=== PATIENT | male | born 1960 | race Caucasian/White ===

== ENCOUNTER 2019-06-28 09:38 | Emergency (ER) | payer MEDICAID, OTHER ==
[~2019-06-28] VITALS: Ht 188 cm; Wt 86.2 kg
[2019-06-28 09:51] VITALS: BP 170/95
== END 2019-06-28 10:30 | disposition home or self-care (01) ==
LOC: ER 09:38
DX: S61.210A Laceration without foreign body of right index finger without damage to nail, initial encounter (principal); Z53.21 Procedure and treatment not carried out due to patient leaving prior to being seen by health care provider; X58.XXXA Exposure to other specified factors, initial encounter; Y93.89 Activity, other specified; Y92.89 Other specified places as the place of occurrence of the external cause; Y99.8 Other external cause status

== ENCOUNTER 2021-10-18 01:09 | Inpatient (IN) | payer OTHER, MEDICAID ==
[2021-10-18] VITALS (14 sets, daily range): BP systolic 141–178; BP diastolic 90–124
[~2021-10-18] VITALS: Ht 188 cm; Wt 114.7 kg
--- NOTE | 2021-10-18 02:05 | PHYS DOC ---
Past Medical History Past Medical History: Hypertension Past Surgical History: Appendectomy, Lumbar Laminectomy Additional Past Surgical Histo: HERNIA, ANKLE RECONSTRUCTION, CARPAL TUNNEL Smoking Status: Current Every Day Smoker Alcohol Use: None Drug Use: None General Adult EDM: Chief Complaint: SHORTNESS OF BREATH HPI: HPI: 61-year-old male past medical history HFrEF (on lasix 40mg), afib (on eliquis) COPD and BPH, presents to the ED with complaints of worsening shortness of breath and lower extremity swelling. Reports associated vomiting, loose watery diarrhea "I can't keep anything down," chills and lack of smell. States he has not been vaccinated for Covid but was discharged from [facility] 10 days ago after being admitted for fluid around the heart and the lungs. States his Covid test at that time was negative. Reports he was kicked out by security because "no one's putting things in me without my consent." States the attending physician wanted to put "stents" in-unsure location stent placement. Reviewed patient's medical paperwork he brought to the emergency department. Patient was also admitted to [facility] September 24 and had a negative bilateral lower extremity duplex ultrasound. Review of Systems: Review of Systems: Constitutional: Denies fever or chills. [] Eyes: Denies change in visual acuity. [] HENT: Denies nasal congestion or sore throat. [] Respiratory: Denies cough or mopped assist Cardiovascular: Denies chest pain or syncope GI: Denies abdominal pain or constipation : Denies dysuria or hematuria Musculoskeletal: Denies back pain or joint pain. [] Integument: Denies rash or diaphoresis Neurologic: Denies headache, focal weakness or sensory changes. [] Endocrine: Denies polyuria or polydipsia. [] Lymphatic: Denies swollen glands. [] Psychiatric: Denies depression or anxiety. [] Heart Score: C/O Chest Pain: No Risk Factors: Risk Factors: DM, Current or recent (<one month) smoker, HTN, HLP, family history of CAD, obesity. Risk Scores: Score 0 - 3: 2.5% MACE over next 6 weeks - Discharge Home Score 4 - 6: 20.3% MACE over next 6 weeks - Admit for Clinical Observation Score 7 - 10: 72.7% MACE over next 6 weeks - Early Invasive Strategies Allergies: Allergies: Allergies Coded Allergies Type Severity Reaction Last Updated Verified No Known Drug Allergies 06/28/19 No Physical Exam: PE: Constitutional: no acute distress, non-toxic appearance, appears in chronic/poor health HENT: Normocephalic, atraumatic, Eyes: EOMI, conjunctiva normal, no discharge. Neck: Normal range of motion, supple, JVD present Cardiovascular: S1/2 present, irregular rhythm Lungs & Thorax: Speaking in full sentences, bilateral equal chest rise, mild labored speech, equal breath sounds, mild expiratory wheeze Abdomen: soft, no tenderness, Skin: Warm, dry, Back: No tenderness, no CVA tenderness. [] Extremities: No tenderness, no cyanosis, lower extremity edema-otherwise significantly increased in the right lower extremity than the left lower extremity Neurologic: Alert and oriented X 3, normal motor function, normal sensory function, no focal deficits noted. [] Psychologic: Affect normal, judgement normal, mood normal. [] EKG: EKG: A. fib at 96 bpm, left axis deviation, QTC 481, no obvious T wave inversions, ST elevations or ST depressions Radiology/Procedures: Radiology/Procedures: IMAGING REPORT Signed PATIENT: BIB MOSES LACCOUNT: [id number] : 1960 LOCATION: ED HOLD AGE: 61 SEX: M EXAM STATUS: ADM IN ORD. PHYSICIAN: BROOKLYN WILSON DO REASON: leg swelling, rle >> lle PROCEDURE: VENOUS LOWER EXT BILATERAL INDICATION: Reason: leg swelling, rle >> lle / Spl. Instructions: / History: COMPARISON: None. TECHNIQUE: Grayscale, color and doppler ultrasound images were obtained of the bilateral lower extremity venous vasculature. RIGHT: No thrombus identified in the common femoral vein, femoral vein, popliteal vein or visualized calf veins. LEFT: No thrombus identified in the common femoral vein, femoral vein, popliteal vein or visualized calf veins. IMPRESSION: * No thrombus identified in deep venous system of bilateral lower extremities. * Edema of soft tissues. Electronically signed by: Kendal Mathur MD (10/18/2021 4:01 AM) [id number] DICTATED and SIGNED BY: KENDAL MATHUR MD DATE: 10/18/21 [id number] Course & Med Decision Making: Course & Med Decision Making Pertinent Labs and Imaging studies reviewed. (See chart for details) Concern for NSTEMI and chf exacerbation-I suspect [facility] wanted to cath pt. Lower extremity duplex with no signs of DVT. CTA and repeat high-sensitivity troponin pending. Will admit for further medical management and cardiology consultation. Patient stable to admission and agrees with this plan. I have spoken with the patient and/or caregivers. I have explained the patie nt's condition, diagnosis and treatment plan based on the information available to me at this time. I have answered the patient's and/or caregivers questions and answered any concerns. The patient and/or caregivers have as good an understanding of the patient's diagnosis, condition and treatment plan as can be expected at this point. The patient has been stabilized within the capability of the emergency department. The patient will be transported for further care and management or will be moved to an observation or inpatient service. I have communicated with the staff or medical practitioner taking over this patient's care. Nettie Disclaimer: Nettie Disclaimer: This electronic medical record was generated, in whole or in part, using a voice recognition dictation system. Departure Departure Impression: Primary Impression: NSTEMI (non-ST elevated myocardial infarction) Additional Impression: CHF (congestive heart failure) Disposition: ADMITTED INPATIENT Admitting Physician: ORLANDO (Dr. Dela Cruz) Condition: GUARDED Referrals: UNKNOWN PCP NAME (PCP) BROOKLYN WILSON DO Oct 18, 2021 02:05
[2021-10-18 02:48] LABS: BASO % 1 % (0-3); EOS # 0.2 x10^3/uL (0.0-0.7); EOS % 3 % (0-3); HEMOGLOBIN 9.6 g/dL (13.0-17.5); LYMPH # 1.4 x10^3/uL (1.0-4.8); LYMPH % 22 % (24-48); MEAN CORPUSCULAR HEMOGLOBIN 25 pg (25-35); MEAN CORPUSCULAR HGB CONC 32 g/dL (31-37); MEAN CORPUSCULAR VOLUME 79 fL (79-100); MONO # 0.8 x10^3/uL (0.0-1.1); MONO % 12 % (0-9); NEUT % 63 % (31-73); PLATELET COUNT 203 x10^3/uL (140-400); RED BLOOD COUNT 3.79 x10^6/uL (4.30-5.70); WHITE BLOOD COUNT 6.4 x10^3/uL (4.0-11.0)
[2021-10-18 02:56] LABS: CALCIUM 8.2 mg/dL (8.5-10.1); CREATININE 1.3 mg/dL (0.7-1.3); GFR 56.1; POTASSIUM 4.2 mmol/L (3.5-5.1)
[2021-10-18 02:57] LABS: BILIRUBIN,URINE NEGATIVE (NEG); CLARITY,URINE CLEAR; COLOR,URINE YELLOW; NITRITE,URINE NEGATIVE (NEG); PH,URINE 5.5 (<5.0-8.0); PROTEIN,URINE 100 mg/dL (NEG-TRACE)
[2021-10-18 03:03] LABS: ALBUMIN 3.3 g/dL (3.4-5.0); ALBUMIN/GLOBULIN RATIO 0.9 (1.0-1.7); TOTAL BILIRUBIN 0.6 mg/dL (0.2-1.0); TOTAL PROTEIN 6.9 g/dL (6.4-8.2)
[2021-10-18 03:04] LABS: INFLUENZA A PATIENT NEGATIVE (NEGATIVE); INFLUENZA B PATIENT NEGATIVE (NEGATIVE)
[2021-10-18] MEDS ORDERED: diphenhydrAMINE HCL 25 MG CAPSULE PO ONE ×2 (03:14→03:30)
[2021-10-18 03:16] LABS: BACTERIA,URINE 0 /HPF (0-FEW); RBC,URINE 0 /HPF (0-2)
[2021-10-18] MEDS ORDERED: ONDANSETRON PF 4 MG/2 ML VIAL. ONE (03:44)
[2021-10-18] MEDS ORDERED: CONTRAST GIVEN. MC PRN ×2 (03:45→10:45)
[2021-10-18] MEDS ORDERED: ONDANSETRON PF 4 MG/2 ML VIAL. IVP ONE (04:00)
[2021-10-18] MEDS ORDERED: IOHEXOL 350 MG/ML 100 ML VIAL. IV ONE (04:00)
--- NOTE | 2021-10-18 04:03 | RAD ---
INDICATION: Reason: leg swelling, rle >> lle / Spl. Instructions: / History: COMPARISON: None. TECHNIQUE: Grayscale, color and doppler ultrasound images were obtained of the bilateral lower extrem ity venous vasculature. RIGHT: No thrombus identified in the common femoral vein, femoral vein, popliteal vein or visualized calf ve ins. LEFT: No thrombus identified in the common femoral vein, femoral vein, popliteal vein or visualized calf ve ins. IMPRESSION: * No thrombus identified in deep venous system of bilateral lower extremities. * Edema of soft tissues. Electronically signed by: Bj Posada MD (10/18/2021 4:01 AM) [id number]
--- NOTE | 2021-10-18 07:15 | RAD ---
CTA scan of the Chest with Contrast (Pulmonary Embolism protocol) 10/18/2021 Clinical History: Shortness of breath. Technique: After the intravenous administration of 75 cc of Omnipaque 350, contiguous, 0.625 mm axial sections were obtained through the chest. 2 mm axial and 3D MIP coronal and sagittal reconstructed images were obtained. One or more of the following individualized dose reduction techniques were utilized for this study: 1. Automated exposure control. 2. Adjustment of the mA and/or kV according to patient size. 3. Use of iterative reconstruction technique. Findings: Comparison is made to a portable chest radiograph performed earlier today. Suboptimal opacification of the pulmonary arteries with contrast is seen significantly limiting the s tudy. No obvious filling defect is seen within the visualized pulmonary arteries. There is mild cardiomegaly. Mild atherosclerotic calcification of the thoracic aorta is seen. The tho racic aorta is mildly tortuous but tapers normally. Enlarged hilar and mediastinal lymph nodes are se en which measure 1 to 2.7 cm in size. Minimal dependent subsegmental atelectasis seen involving both lungs. No area of consolidation is see n. No pneumothorax or pleural effusion is noted. Images through the upper abdomen demonstrate small amount of ascites. Degenerative changes are seen involving the thoracic spine. Impression: The study is limited due to suboptimal opacification of the pulmonary arteries with contr ast. There is no definite CT evidence of pulmonary embolism. Electronically signed by: Wicho Chauhan MD (10/18/2021 7:13 AM) [id number]
[2021-10-18] MEDS ORDERED: MORPHINE SULFATE 2 MG/ML INJ. IVP ONE (08:00)
[2021-10-18] MEDS ORDERED: IODIXANOL 320 MG/ML 100 ML VIAL. ONE (09:30)
[2021-10-18] MEDS ORDERED: LIDOCAINE 1% PF 2 ML VIAL. ONE (09:30)
--- NOTE | 2021-10-18 09:49 | PDOC2 ---
MARGIE PRINCE BELL ATTENDANT 10/18/21 0948: CARDIAC CONSULT DATE OF CONSULT Date of Consult DATE: 10/18/21 TIME: 09:35 REASON FOR CONSULT Reason for Consult: NSTEMI CHF REFERRING PHYSICIAN Referring Physician: Dr. Hankins SOURCE Source: Chart review, Patient HISTORY OF PRESENT ILLNESS HISTORY OF PRESENT ILLNESS This is a 61 yo male who presented secondary to shortness of breath and LE edema. Patient reports he has been short of breath and edematous for the last 10 months. Has require inpatient admission to [facility] and [facility]. [facility] chart notated history of severe CMP, but no specific LVEF stated. Patient was to have echocardiogram conducted recently, but unfortunately left AMA prior to having conducted. C was recommended also, but patient refused. Patient was seen in clinic with Dr. Gandhi last month and agreed to [facility] at that time. Patient was scheduled to have on an outpatient basis today. Due to worsening LE edema and shortness of breath, patient presented to the ED for further evaluation and burak tment. He denies any chest pain, palpitations, dizziness, diaphoresis, or nausea/vomiting. does reports compliance with medications. PAST MEDICAL HISTORY Cardiovascular: AFIB, CHF, HTN, Hyperlipidemia, Other (Venous insufficiency ) Pulmonary: COPD Psych: Anxiety, Bipolar, Depression, Schizophrenia Renal/: Benign prostatic enlarg. PAST SURGICAL HISTORY Past Surgical History: Hernia Repair, Other (lumbar laminectomy) FAMILY HISTORY Family History: Heart Disease SOCIAL HISTORY Smoke: <1 pack per day ALCOHOL: occassional Drugs: Crystal meth (h/o meth use ) Lives: Alone CURRENT MEDICATIONS CURRENT MEDICATIONS Current Medications Medications (Trade) Dose Ordered Sig/Mari Route PRN Reason Start Time Stop Time Status Last Admin Dose Admin Diphenhydramine HCl (Benadryl) 25 mg 1X ONCE PO 10/18/21 03:30 10/18/21 03:31 DC 10/18/21 03:16 Iohexol (Omnipaque 350 Mg/ml) 75 ml 1X ONCE IV 10/18/21 04:00 10/18/21 04:01 DC 10/18/21 04:17 Ondansetron HCl (Zofran) 8 mg 1X ONCE IVP 10/18/21 04:00 10/18/21 04:01 DC 10/18/21 03:46 Morphine Sulfate (Morphine Sulfate) 2 mg 1X ONCE IVP 10/18/21 08:00 12/6/21 08:01 DC 10/18/21 08:44 ALLERGIES ALLERGIES: Coded Allergies: No Known Drug Allergies (Unverified , 06/28/19) ROS Review of System 14 point ROS conducted with pertinent positives noted above in hPI PHYSICAL EXAM General: Alert, Oriented X3, Cooperative, No acute distress HEENT: Atraumatic, Mucous membr. moist/pink Lungs: Other (crackles ) Heart: Other (AFIB, rate controlled ) Abdomen: Soft Extremities: Other (2+ bilateral LE edema ) Skin: No significant lesion Neuro: Normal speech, Sensation intact Psych/Mental Status: Mental status NL, Other (flat affect ) MUSCULOSKELETAL: Osteoarthritic changes both hands VITALS/I&O VITALS/I&O: Vital Signs Date Time Temp Pulse Resp B/P (MAP) Pulse Ox O2 Delivery O2 Flow Rate FiO2 10/18/21 08:44 22 100 Room Air 10/18/21 04:13 93 152/97 (115) 10/18/21 01:30 98.2 98.2 LABS Lab: Laboratory Tests Test 10/18/21 02:28 10/18/21 02:30 10/18/21 02:45 10/18/21 07:35 White Blood Count 6.4 x10^3/uL (4.0-11.0) Red Blood Count 3.79 x10^6/uL (4.30-5.70) L Hemoglobin 9.6 g/dL (13.0-17.5) L Hematocrit 30.0 % (39.0-53.0) L Mean Corpuscular Volume 79 fL (79-100) Mean Corpuscular Hemoglobin 25 pg (25-35) Mean Corpuscular Hemoglobin Concent 32 g/dL (31-37) Red Cell Distribution Width 18.0 % (11.5-14.5) H Platelet Count 203 x10^3/uL (140-400) Neutrophils (%) (Auto) 63 % (31-73) Lymphocytes (%) (Auto) 22 % (24-48) L Monocytes (%) (Auto) 12 % (0-9) H Eosinophils (%) (Auto) 3 % (0-3) Basophils (%) (Auto) 1 % (0-3) Neutrophils # (Auto) 4.0 x10^3/uL (1.8-7.7) Lymphocytes # (Auto) 1.4 x10^3/uL (1.0-4.8) Monocytes # (Auto) 0.8 x10^3/uL (0.0-1.1) Eosinophils # (Auto) 0.2 x10^3/uL (0.0-0.7) Basophils # (Auto) 0.0 x10^3/uL (0.0-0.2) D-Dimer (Melanie) 2.94 ug/mlFEU (0.00-0.50) H Sodium Level 139 mmol/L (136-145) Potassium Level 4.2 mmol/L (3.5-5.1) Chloride Level 104 mmol/L (98-107) Carbon Dioxide Level 23 mmol/L (21-32) Anion Gap 12 (6-14) Blood Urea Nitrogen 28 mg/dL (8-26) H Creatinine 1.3 mg/dL (0.7-1.3) Estimated GFR (Cockcroft-Gault) 56.1 BUN/Creatinine Ratio 22 (6-20) H Glucose Level 97 mg/dL (70-99) Lactic Acid Level 0.8 mmol/L (0.4-2.0) Calcium Level 8.2 mg/dL (8.5-10.1) L Total Bilirubin 0.6 mg/dL (0.2-1.0) Aspartate Amino Transferase (AST) 28 U/L (15-37) Alanine Aminotransferase (ALT) 35 U/L (16-63) Alkaline Phosphatase 73 U/L (46-116) Creatine Kinase 95 U/L (39-308) Troponin I High Sensitivity 134 ng/L (4-75) H 147 ng/L (4-75) H LV-Vzj-C-Type Natriuretic Peptide 90492 pg/mL (0-124) H Total Protein 6.9 g/dL (6.4-8.2) Albumin 3.3 g/dL (3.4-5.0) L Albumin/Globulin Ratio 0.9 (1.0-1.7) L Influenza Type A Antigen Negative (NEGATIVE) Influenza Type B Antigen Negative (NEGATIVE) SARS-CoV-2 Antigen (Rapid) Negative (NEGATIVE) Urine Collection Type Unknown Urine Color Yellow Urine Clarity Clear Urine pH 5.5 (<5.0-8.0) Urine Specific Pitcher 1.020 (1.000-1.030) Urine Protein 100 mg/dL (NEG-TRACE) Urine Glucose (UA) Negative mg/dL (NEG) Urine Ketones (Stick) Negative mg/dL (NEG) Urine Blood Negative (NEG) Urine Nitrite Negative (NEG) Urine Bilirubin Negative (NEG) Urine Urobilinogen Dipstick 1.0 mg/dL (0.2 mg/dL) Urine Leukocyte Esterase Trace (NEG) Urine RBC 0 /HPF (0-2) Urine WBC 1-4 /HPF (0-4) Urine Squamous Epithelial Cells Occ /LPF Urine Bacteria 0 /HPF (0-FEW) Urine Mucus Slight /LPF Laboratory Tests 10/18/21 02:28 Laboratory Tests 10/18/21 02:28 ASSESSMENT/PLAN ASSESSMENT/PLAN 1. Acute on chronic systolic CHF 2. CMP; H/o severely reduced LV systolic function per review of [facility] records. No date noted. Echo ordered at recent hospitalization at [facility], but patient left AMA prior to completion. 3. Mild troponin elevation; most probable type II, demand ischemia. LHC also recommended at [facility], but patient declined. Patient consented to [facility] on an outpatient during recent clinic visit; was scheduled for today. 4. AFIB; presently AFIB, rate controlled 5. Accelerated hypertension; better controlled 6. Hyperlipidemia 7. Schizophrenia, personality disorder, anxiety, depression 8. H/o polysubstance abuse; reports he has been clean 9. H/o noncompliance Recommendations Diuresis with monitoring of renal function Start HF optimization therapy. Convert metoprolol to Toprol. Add losartan, spironolactone. Echo to assess LV systolic function Metoprolol for rate control Resume Eliquis post [facility] Lipids Will proceed with [facility] today. R/b/a discussed with patient and he is agreeable to proceed. Supportive care MICHAEL GANDHI MD 10/18/21 1030: CARDIAC CONSULT ASSESSMENT/PLAN ASSESSMENT/PLAN Patient seen and examined. Agree with EMERY GRINDER's assessment and plan. Continue diuresis for acute on chronic systolic heart failure. Plan for cardiac catheterization to further evaluate his non-STEMI -risks and benefits explained Atrial fibrillation with heart rate elevated -resume home medications and titrate for better control Thank you for your consultation MARGIE PRINCE APRN Oct 18, 2021 09:48 MICHAEL GANDHI MD Oct 18, 2021 10:30
[2021-10-18 10:00] LABS: CHOLESTEROL/HDL RATIO 3.6
--- NOTE | 2021-10-18 10:28 | PDOC ---
MODERATE SEDATION ASSESSMENT RISKS/ALTERNATIVES Risks/Alternatives Risks and alternatives of this type of sedation and procedure discussed with: RISK/ALTERNATIVES: Patient H & P ON CHART H & P H & P on chart and reviewed for co-morbid conditions and appropriate labs. H&P ON CHART: Yes STATUS PREG STATUS ASSESSED: N/A MEDS/ALLERGIES REVIEWED Meds/Allergies Reviewed Medications and Allergies including time and route of recently administered narcotics and sedatives. MEDS/ALLERGIES REVIEWED: Yes ASA RATING ASA RATING: III AIRWAY ASSESSMENT Airway Assessment Airway patency, oral function limitations, presence of caps, crowns, dentures, partials, and ability to extend neck assessed. AIRWAY ASSESSMENT: Yes MALLAMPATI SCORE MALLAMPATI SCORE: II PRE-SEDATION ASSESSMENT PRE-SEDATION ASSESSMENT: Yes MICHAEL MOSES MD Oct 18, 2021 10:28
[2021-10-18] MEDS ORDERED: HEPARIN for IV BOLUS 10,000 UNIT/10 ML VIAL. IART ONE (10:45)
[2021-10-18] MEDS ORDERED: IODIXANOL 320 MG/ML 100 ML VIAL. IART ONE (10:45)
[2021-10-18] MEDS ORDERED: MIDAZOLAM HCL/PF 2 MG/2 ML VIAL. IV ONE (10:45)
[2021-10-18] MEDS ORDERED: fentaNYL PF VIAL 100 MCG/2 ML VIAL IV ONE (10:45)
[2021-10-18] MEDS ORDERED: LIDOCAINE 1% PF 2 ML VIAL. INJ ONE (10:45)
[2021-10-18] MEDS ORDERED: VERAPAMIL 5 MG/2 ML VIAL. IART ONE (10:45)
[2021-10-18] MEDS ORDERED: NITROGLYCERIN 200 MCG/2 ML SYRINGE FOR CATH/VASC LAB. IART ONE (10:45)
--- NOTE | 2021-10-18 10:45 | CARD ---
MR#: [id number] Date of Study: 10/18/2021 Ordering Physician: MICHAEL MOSES, Referring Physician: MICHAEL MOSES, Tech: RT Jeffrey(R) APPROVED REPORT Technologist: RT Jeffrey(R) Nurse: Kim Murphy RN Procedure(s) performed: Left heart catheterization, selective coronary angiography and left ventricul ography via right transradial approach fl time: 2.2 mins dose: 60 gycm2 contrast: 113 ml moderate sedation: 33 mins INDICATION The indication(s) include : Acute on chronic systolic heart failure and non-STEMI. [facility] Clinical Frailty Scale [facility] Clinical Frailty Scale: Moderately Frail Heart Failure Heart Failure: Yes If Yes, Newly Diagnosed: No If Yes, HF Type: Systolic If Yes, NYHA Class: Class III CASE TECHNIQUE IV conscious sedation was used throughout procedure with appropriate monitoring and was performed in the presence of a registered nurse who was an independent trained observer other than the physician p erforming the procedure. During this case, Fluoroscopy and low osmolar contrast were used for imaging . Specimen(s) Removed: No Estimated Blood loss: 10 cc's. PROCEDURE NARRATIVE After explaining the risks, benefits and alternative options, informed consent was obtained from susan ent. Patient was brought to the cardiac Ceramics Instructor and right wrist was prepped and draped in the usual fashion after confirming a positive modified Abdirizak's test. Arterial access was obtained in the righ t radial artery and a 6 Gabonese sheath was inserted. 6 Gabonese Ludin catheter was used to perform kenyon ective angiography of the left and right coronary arteries. 6 Gabonese pigtail catheter was used to pe rform left ventriculography. Patient tolerated the procedure well. Hemostasis was achieved using TR band. There were no immediate complications. The following findings were noted. FINDINGS 1. Hemodynamics: Elevated left ventricular end-diastolic pressure of 36 mmHg consistent with acute o n chronic systolic heart failure. No pullback gradient across the aortic valve. 2. Left ventriculography: Severe left ventricular systolic dysfunction with ejection fraction estima marisela at 25%. No significant mitral regurgitation seen. 3. Coronary angiography: a. The left main coronary artery arose from the left sinus of Valsalva, gave rise to the left anteri or descending and left circumflex arteries and did not show any significant stenosis. b. The left anterior descending artery did not show any significant stenosis. c. The left circumflex artery did not show any significant stenosis. d. The right coronary artery was a large and dominant vessel arising from the right sinus of Valsalv a that did not show any significant stenosis. Conclusion 1. No significant coronary artery disease 2. Severe left ventricle systolic dysfunction with ejection fraction estimated at 25% 3. Elevated left ventricular end-diastolic pressure consistent with acute on chronic systolic heart failure Recommendations Optimization of medical therapy for severe nonischemic cardiomyopathy and repeat 2D echo in 3 months to evaluate the need for AICD implantation Signed by : Michael Moses, Electronically Approved : 10/18/2021 10:45:09
[2021-10-18] MEDS ORDERED: DILT240C33 PO (11:04)
[2021-10-18] MEDS ORDERED: POTA20TA4 PO (11:04)
[2021-10-18] MEDS ORDERED: FURO40TA4 PO (11:04)
[2021-10-18] MEDS ORDERED: TAMS0.4C97 PO (11:04)
[2021-10-18] MEDS ORDERED: APIX5TAB PO (11:04)
[2021-10-18] MEDS ORDERED: METOPROLOL TART IMMED RELEASE 25 MG TABLET. PO ONE (11:30)
[2021-10-18] MEDS ORDERED: FUROSEMIDE 40 MG TABLET. PO ONE (11:30)
[2021-10-18] MEDS ORDERED: METOPROLOL TART IMMED RELEASE 25 MG TABLET. PO SCH (12:00)
[2021-10-18] MEDS ORDERED: ZOLPIDEM 5 MG TABLET. PO PRN (12:15)
[2021-10-18] MEDS ORDERED: CALCIUM CARBONATE 500 MG TAB.CHEW PO PRN (12:15)
[2021-10-18] MEDS ORDERED: ELECTROLYTE (NON-ICU) PROTOCOL. MC PRN (12:15)
[2021-10-18] MEDS ORDERED: ACETAMINOPHEN 325 MG TABLET. PO PRN (12:15)
--- NOTE | 2021-10-18 13:12 | PDOC1 ---
History and Physical Date of Admission Date of Admission DATE: 10/18/21 TIME: 13:10 Identification/Chief Complaint Chief Complaint Shortness of breath Source Source: Patient History of Present Illness History of Present Illness Mr Otero is a 61yo male with PMhx Hypertension, HFrEF <30% EF, afib (on eliquis) COPD, and BPH who presents to the ED with complaints of worsening shortness of breath and lower extremity swelling. leg swelling R>L. Reports associated vomiting, loose watery diarrhea. He has noted worsening orthopnea and dyspnea on exertion and notes that normally at his dry weight he weighs 205 pounds and that home he will need 262 pounds. He has not been vaccinated for Covid19. He notes 2 recent hospital stays at [facility] 10 days prior to arrival here and tells me he was escorted out of the hospital by police. He also notes he was hospitalized at [facility] in September for similar symptoms. Labs with WBC 6.4, Hb 9.6, platelets 203, NA 139, K4.2, BUN 28, CR 1.3, calcium 8.2, albumin 3.3, LFTs otherwise within normal laboratory limits, NT proBNP 14,606, high-sensitivity troponin is 134, TSH 2.027, D-dimer 2.94, rapid influenza negative, rapid COVID-19 and COVID-19 PCR both negative. Urinalysis bland. EKG appears A. fib at 96 bpm, left axis deviation, QTC 481, no obvious T wave inversions, ST elevations or ST depressions Bilateral lower extremity venous Doppler negative for DVT, CT pulmonary angiogram undertaking given his symptoms some negative for pulmonary embolism Admitted for further care. Seen immediately after cardiac catheterization where no interventions were performed and EF was noted significantly reduced less than 30%. Past Medical History Cardiovascular: AFIB, CHF, HTN, Hyperlipidemia, Other (Venous insufficiency ) Pulmonary: COPD Psych: Anxiety, Bipolar, Depression, Schizophrenia Renal/: Benign prostatic enlarg. Past Surgical History Past Surgical History Appendectomy, Lumbar Laminectomy, HERNIA, ANKLE RECONSTRUCTION, CARPAL TUNNEL Past Surgical History: Appendectomy, Hernia Repair Family History Family History: High Cholestrol, Hypertension Social History Smoke: 1 pack per day ALCOHOL: none Drugs: Crystal meth Current Problem List Problem List Problems Medical Problems: (1) CHF (congestive heart failure) Status: Acute (2) NSTEMI (non-ST elevated myocardial infarction) Status: Acute Current Medications Current Medications Current Medications Diphenhydramine HCl (Benadryl) 25 mg 1X ONCE PO Last administered on 10/18/21at 03:16; Start 10/18/21 at 03:30; Stop 10/18/21 at 03:31; Status DC Diphenhydramine HCl (Benadryl) 25 mg STK-MED ONCE PO ; Start 10/18/21 at 03:14; Stop 10/18/21 at 03:15; Status DC Iohexol (Omnipaque 350 Mg/ml) 75 ml 1X ONCE IV Last administered on 10/18/21at 04:17; Start 10/18/21 at 04:00; Stop 10/18/21 at 04:01; Status DC Ondansetron HCl (Zofran) 8 mg 1X ONCE IVP Last administered on 10/18/21at 03:46; Start 10/18/21 at 04:00; Stop 10/18/21 at 04:01; Status DC Ondansetron HCl (Zofran) 4 mg STK-MED ONCE .ROUTE ; Start 10/18/21 at 03:44; St op 10/18/21 at 03:44; Status DC Info (CONTRAST GIVEN -- Rx MONITORING) 1 each PRN DAILY PRN MC SEE COMMENTS; Start 10/18/21 at 03:45; Stop 10/20/21 at 03:44 Morphine Sulfate (Morphine Sulfate) 2 mg 1X ONCE IVP Last administered on 10/18/21at 08:44; Start 10/18/21 at 08:00; Stop 10/18/21 at 08:01; Status DC Lidocaine HCl (Xylocaine-Mpf 1% 2ml Vial) 2 ml STK-MED ONCE .ROUTE ; Start 10/18/21 at 09:30; Stop 10/18/21 at 09:30; Status DC Iodixanol (Visipaque 320) 100 ml STK-MED ONCE .ROUTE ; Start 10/18/21 at 09:30; Stop 10/18/21 at 09:30; Status DC Heparin Sodium/ Sodium Chloride 1,000 ml @ As Directed STK-MED ONCE .ROUTE ; Start 10/18/21 at 09:30; Stop 10/18/21 at 09:30; Status DC Nitroglycerin (Nitroglycerin) 200 mcg 1X ONCE IART Last administered on 1 12/19/20at 10:40; Start 10/18/21 at 10:45; Stop 10/18/21 at 10:46; Status DC Verapamil HCl (Verapamil) 2.5 mg 1X ONCE IART Last administered on 10/18/21at 10:40; Start 10/18/21 at 10:45; Stop 10/18/21 at 10:46; Status DC Heparin Sodium (Porcine) (Heparin Sodium) 2,500 unit 1X ONCE IART Last administered on 10/18/21at 10:40; Start 10/18/21 at 10:45; Stop 10/18/21 at 10:46; Status DC Heparin Sodium/ Sodium Chloride (HEPARIN for ARTERIAL LINE FLUSH) 1,000 unit 1X ONCE IART Last administered on 10/18/21at 10:42; Start 10/18/21 at 10:45; Stop 10/18/21 at 10:46; Status DC Midazolam HCl (Versed) 4 mg 1X ONCE IV Last administered on 10/18/21at 10:41; Start 10/18/21 at 10:45; Stop 10/18/21 at 10:46; Status DC Fentanyl Citrate (Fentanyl 2ml Vial) 100 mcg 1X ONCE IV Last administered on 10/18/21at 10:41; Start 10/18/21 at 10:45; Stop 10/18/21 at 10:46; Status DC Iodixanol (Visipaque 320) 113 ml 1X ONCE IART Last administered on 10/18/21at 10:41; Start 10/18/21 at 10:45; Stop 10/18/21 at 10:46; Status DC Lidocaine HCl (Xylocaine-Mpf 1% 2ml Vial) 2 ml 1X ONCE INJ Last administered on 10/18/21at 10:41; Start 10/18/21 at 10:45; Stop 10/18/21 at 10:46; Status DC Info (CONTRAST GIVEN -- Rx MONITORING) 1 each PRN DAILY PRN MC SEE COMMENTS; Start 10/18/21 at 10:45; Stop 10/20/21 at 10:44 Metoprolol Tartrate (Lopressor) 25 mg BID PO ; Start 10/18/21 at 12:00 Apixaban (Eliquis) 5 mg BID PO ; Start 10/18/21 at 21:00 Furosemide (Lasix) 40 mg DAILY PO ; Start 10/19/21 at 09:00 Potassium Chloride (Klor-Con) 20 meq DAILY PO ; Start 10/19/21 at 09:00 Tamsulosin HCl (Flomax) 0.4 mg DAILY PO ; Start 10/19/21 at 09:00 Metoprolol Tartrate (Lopressor) 25 mg 1X ONCE PO Last administered on 10/18/21at 11:30; Start 10/18/21 at 11:30; Stop 10/18/21 at 11:32; Status DC Furosemide (Lasix) 40 mg 1X ONCE PO Last administered on 10/18/21at 11:30; Start 10/18/21 at 11:30; Stop 10/18/21 at 11:32; Status DC Ondansetron HCl (Zofran) 4 mg PRN Q6HRS PRN IVP NAUSEA/VOMITING; Start 10/18/21 at 12:15 Calcium Carbonate/ Glycine (Tums) 500 mg PRN Q3HRS PRN PO UPSET STOMACH; Start 10/18/21 at 12:15 Zolpidem Tartrate (Ambien) 5 mg PRN QHS PRN PO INSOMNIA, MAY REPEAT IN 1HR; Start 10/18/21 at 12:15 Info (Non-Icu Electrolyte Protocol) 1 ea PRN DAILY PRN MC SEE COMMENTS; Start 10/18/21 at 12:15 Oxycodone HCl (Roxicodone) 5 mg PRN Q3HRS PRN PO BREAKTHROUGH PAIN; Start 10/18/21 at 12:15 Oxycodone/ Acetaminophen (Percocet 5/325) 1 tab PRN Q4HRS PRN PO MILD PAIN, 1ST CHOICE; Start 10/18/21 at 12:15 Oxycodone/ Acetaminophen (Percocet 5/325) 2 tab PRN Q4HRS PRN PO MODERATE PAIN, SEVERE PAIN; Start 10/18/21 at 12:15 Acetaminophen (Tylenol) 650 mg PRN Q6HRS PRN PO Headaches, Temp > 101.5F; Start 10/18/21 at 12:15 Senna/Docusate Sodium (Senna Plus) 1 tab BID PO ; Start 10/18/21 at 21:00 Active Scripts Active Reported Potassium Chloride (Potassium Chloride) 20 Meq Tablet.er 20 Meq PO DAILY Eliquis (Apixaban) 5 Mg Tablet 5 Mg PO BID Flomax (Tamsulosin Hcl) 0.4 Mg Cap.er.24h 0.4 Mg PO DAILY Diltiazem 24Hr Cd (Diltiazem HCl) 240 Mg Cap.er.24h 1 Cap PO DAILY 30 Days Furosemide 40 Mg Tablet 40 Mg PO DAILY Allergies Allergies: Coded Allergies: No Known Drug Allergies (Unverified , 06/28/19) ROS General: YES: Fatigue, Malaise; No: Chills, Night Sweats, Appetite, Other PSYCHOLOGICAL ROS: YES: Anxiety, Mood Swings; No: Behavioral Disorder, Concentration difficultie, Decreased libido, Depression, Disorientation, Hallucinations, Hostility, Irritablity, Memory difficulties, Obsessive thoughts, Physical abuse, Sexual abuse, Sleep disturbances, Suicidal ideation, Other Eyes: No Blurry vision, No Decreased vision, No Double vision, No Dry eyes, No Excessive tearing, No Eye Pain, No Itchy Eyes, No Loss of vision, No Photophobia, No Scotomata, No Uses contacts, No Uses glasses, No Other HEENT: No: Heacaches, Visual Changes, Hearing change, Nasal congestion, Nasal discharge, Oral lesions, Sinus pain, Sore Throat, Epistaxis, Sneezing, Snoring, Tinnitus, Vertigo, Vocal changes, Other ALLERGY AND IMMUNOLOGY: No: Hives, Insect Bite Sensitivity, Itchy/Watery Eyes, Nasal Congestion, Post Nasal Drip, Seasonal Allergies, Other Hematological and Lymphatic: No: Bleeding Problems, Blood Clots, Blood Transfusions, Brusing, Night Sweats, Pallor, Swollen Lymph Nodes, Other ENDOCRINE: No: Breast Changes, Galactorrhea, Hair Pattern Changes, Hot Flashes, Malaise/lethargy, Mood Swings, Palpitations, Polydipsia/polyuria, Skin Changes, Temperature Intolerance, Unexpected Weight Changes, Other Breast: No New/Changing Breast Lumps, No Nipple changes, No Nipple discharge, No Other Respiratory: YES: Cough, Orthopnea, Shortness of breath, SOB with excertion; No: Hemoptysis, Pleuritic Pain, Sputum Changes, Stridor, Tachypnea, Wheezing, Other Cardiovascular: yes Orthopnea, yes Paroxysmal Noc. Dyspnea, yes Edema; No Chest Pain, No Palpitations, No Lt Headedness, No Other Gastrointestinal: Yes Nausea, Yes Vomiting; No Abdominal Pain, No Diarrhea, No Constipation, No Melena, No Hematochezia, No Other Genitourinary: YES Frequency; No Dysuria, No Incontinence, No Hematuria, No Retention, No Discharge, No Urgency, No Pain, No Flank Pain, No Other, No , No , No , No , No , No , No Musculoskeletal: No Gait Disturbance, No Joint Pain, No Joint Stiffness, No Joint Swelling, No Muscle Pain, No Muscular Weakness, No Pain In:, No Swelling In:, No Other Neurological: No Behavorial Changes, No Bowel/Bladder ControlChng, No Confusion, No Dizziness, No Gait Disturbance, No Headaches, No Impaired Coord/balance, No Memory Loss, No Numbness/Tingling, No Seizures, No Speech Problems, No Tremors, No Visual Changes, No Weakness, No Other Skin: No Dry Skin, No Eczema, No Hair Changes, No Lumps, No Mole Changes, No Mottling, No Nail Changes, No Pruritus, No Rash, No Skin Lesion Changes, No Other, No Acne Physical Exam General: Alert, Oriented X3, Cooperative, mild distress HEENT: Atraumatic, PERRLA, EOMI, Mucous membr. moist/pink, Other (right eye, filled teardrop tattoo) Lungs: Other (babasilar crackles) Heart: irregularly irregular Abdomen: Normal bowel sounds, Soft, No tenderness, No hepatosplenomegaly, No masses Rectal Exam: not examined Extremities: No clubbing, No cyanosis, Normal pulses, No tenderness/swelling Skin: No rashes, No breakdown, Other (Heel cracked on right) Neuro: Normal gait, Normal speech, Strength at 5/5 X4 ext, Normal tone, Sensation intact, Cranial nerves 3-12 NL, Reflexes 2+ Psych/Mental Status: Mental status NL, Mood NL Vitals Vitals Vital Signs Date Time Temp Pulse Resp B/P (MAP) Pulse Ox O2 Delivery O2 Flow Rate FiO2 10/18/21 12:55 74 14 98 Nasal Cannula 2.0 10/18/21 09:20 144/100 (115) 10/18/21 01:30 98.2 98.2 Labs Labs Laboratory Tests Test 10/18/21 02:28 10/18/21 02:30 10/18/21 02:45 10/18/21 07:35 White Blood Count 6.4 x10^3/uL (4.0-11.0) Red Blood Count 3.79 x10^6/uL (4.30-5.70) Hemoglobin 9.6 g/dL (13.0-17.5) Hematocrit 30.0 % (39.0-53.0) Mean Corpuscular Volume 79 fL (79-100) Mean Corpuscular Hemoglobin 25 pg (25-35) Mean Corpuscular Hemoglobin Concent 32 g/dL (31-37) Red Cell Distribution Width 18.0 % (11.5-14.5) Platelet Count 203 x10^3/uL (140-400) Neutrophils (%) (Auto) 63 % (31-73) Lymphocytes (%) (Auto) 22 % (24-48) Monocytes (%) (Auto) 12 % (0-9) Eosinophils (%) (Auto) 3 % (0-3) Basophils (%) (Auto) 1 % (0-3) Neutrophils # (Auto) 4.0 x10^3/uL (1.8-7.7) Lymphocytes # (Auto) 1.4 x10^3/uL (1.0-4.8) Monocytes # (Auto) 0.8 x10^3/uL (0.0-1.1) Eosinophils # (Auto) 0.2 x10^3/uL (0.0-0.7) Basophils # (Auto) 0.0 x10^3/uL (0.0-0.2) D-Dimer (Melanie) 2.94 ug/mlFEU (0.00-0.50) Sodium Level 139 mmol/L (136-145) Potassium Level 4.2 mmol/L (3.5-5.1) Chloride Level 104 mmol/L (98-107) Carbon Dioxide Level 23 mmol/L (21-32) Anion Gap 12 (6-14) Blood Urea Nitrogen 28 mg/dL (8-26) Creatinine 1.3 mg/dL (0.7-1.3) Estimated GFR (Cockcroft-Gault) 56.1 BUN/Creatinine Ratio 22 (6-20) Glucose Level 97 mg/dL (70-99) Lactic Acid Level 0.8 mmol/L (0.4-2.0) Calcium Level 8.2 mg/dL (8.5-10.1) Total Bilirubin 0.6 mg/dL (0.2-1.0) Aspartate Amino Transf (AST/SGOT) 28 U/L (15-37) Alanine Aminotransferase (ALT/SGPT) 35 U/L (16-63) Alkaline Phosphatase 73 U/L (46-116) Creatine Kinase 95 U/L (39-308) Troponin I High Sensitivity 134 ng/L (4-75) 147 ng/L (4-75) RT-Bmz-W-Type Natriuretic Peptide 34161 pg/mL (0-124) Total Protein 6.9 g/dL (6.4-8.2) Albumin 3.3 g/dL (3.4-5.0) Albumin/Globulin Ratio 0.9 (1.0-1.7) Influenza Type A Antigen Negative (NEGATIVE) Influenza Type B Antigen Negative (NEGATIVE) SARS-CoV-2 RNA (VIKTORIYA) Negative (Negative) SARS-CoV-2 Antigen (Rapid) Negative (NEGATIVE) Urine Collection Type Unknown Urine Color Yellow Urine Clarity Clear Urine pH 5.5 (<5.0-8.0) Urine Specific Snyder 1.020 (1.000-1.030) Urine Protein 100 mg/dL (NEG-TRACE) Urine Glucose (UA) Negative mg/dL (NEG) Urine Ketones (Stick) Negative mg/dL (NEG) Urine Blood Negative (NEG) Urine Nitrite Negative (NEG) Urine Bilirubin Negative (NEG) Urine Urobilinogen Dipstick 1.0 mg/dL (0.2 mg/dL) Urine Leukocyte Esterase Trace (NEG) Urine RBC 0 /HPF (0-2) Urine WBC 1-4 /HPF (0-4) Urine Squamous Epithelial Cells Occ /LPF Urine Bacteria 0 /HPF (0-FEW) Urine Mucus Slight /LPF Triglycerides Level 41 mg/dL (0-150) Cholesterol Level 83 mg/dL (0-200) LDL Cholesterol, Calculated 52 mg/dL (0-100) VLDL Cholesterol, Calculated 8 mg/dL (0-40) Non-HDL Cholesterol Calculated 60 mg/dL (0-129) HDL Cholesterol 23 mg/dL (40-60) Cholesterol/HDL Ratio 3.6 Thyroid Stimulating Hormone (TSH) 2.027 uIU/mL (0.358-3.74) Laboratory Tests Test 10/18/21 02:28 10/18/21 02:30 12/6/21 02:45 10/18/21 07:35 White Blood Count 6.4 x10^3/uL (4.0-11.0) Red Blood Count 3.79 x10^6/uL (4.30-5.70) Hemoglobin 9.6 g/dL (13.0-17.5) Hematocrit 30.0 % (39.0-53.0) Mean Corpuscular Volume 79 fL (79-100) Mean Corpuscular Hemoglobin 25 pg (25-35) Mean Corpuscular Hemoglobin Concent 32 g/dL (31-37) Red Cell Distribution Width 18.0 % (11.5-14.5) Platelet Count 203 x10^3/uL (140-400) Neutrophils (%) (Auto) 63 % (31-73) Lymphocytes (%) (Auto) 22 % (24-48) Monocytes (%) (Auto) 12 % (0-9) Eosinophils (%) (Auto) 3 % (0-3) Basophils (%) (Auto) 1 % (0-3) Neutrophils # (Auto) 4.0 x10^3/uL (1.8-7.7) Lymphocytes # (Auto) 1.4 x10^3/uL (1.0-4.8) Monocytes # (Auto) 0.8 x10^3/uL (0.0-1.1) Eosinophils # (Auto) 0.2 x10^3/uL (0.0-0.7) Basophils # (Auto) 0.0 x10^3/uL (0.0-0.2) D-Dimer (Melanie) 2.94 ug/mlFEU (0.00-0.50) Sodium Level 139 mmol/L (136-145) Potassium Level 4.2 mmol/L (3.5-5.1) Chloride Level 104 mmol/L (98-107) Carbon Dioxide Level 23 mmol/L (21-32) Anion Gap 12 (6-14) Blood Urea Nitrogen 28 mg/dL (8-26) Creatinine 1.3 mg/dL (0.7-1.3) Estimated GFR (Cockcroft-Gault) 56.1 BUN/Creatinine Ratio 22 (6-20) Glucose Level 97 mg/dL (70-99) Lactic Acid Level 0.8 mmol/L (0.4-2.0) Calcium Level 8.2 mg/dL (8.5-10.1) Total Bilirubin 0.6 mg/dL (0.2-1.0) Aspartate Amino Transf (AST/SGOT) 28 U/L (15-37) Alanine Aminotransferase (ALT/SGPT) 35 U/L (16-63) Alkaline Phosphatase 73 U/L (46-116) Creatine Kinase 95 U/L (39-308) Troponin I High Sensitivity 134 ng/L (4-75) 147 ng/L (4-75) AO-Noc-E-Type Natriuretic Peptide 84833 pg/mL (0-124) Total Protein 6.9 g/dL (6.4-8.2) Albumin 3.3 g/dL (3.4-5.0) Albumin/Globulin Ratio 0.9 (1.0-1.7) Influenza Type A Antigen Negative (NEGATIVE) Influenza Type B Antigen Negative (NEGATIVE) SARS-CoV-2 RNA (VIKTORIYA) Negative (Negative) SARS-CoV-2 Antigen (Rapid) Negative (NEGATIVE) Urine Collection Type Unknown Urine Color Yellow Urine Clarity Clear Urine pH 5.5 (<5.0-8.0) Urine Specific Snyder 1.020 (1.000-1.030) Urine Protein 100 mg/dL (NEG-TRACE) Urine Glucose (UA) Negative mg/dL (NEG) Urine Ketones (Stick) Negative mg/dL (NEG) Urine Blood Negative (NEG) Urine Nitrite Negative (NEG) Urine Bilirubin Negative (NEG) Urine Urobilinogen Dipstick 1.0 mg/dL (0.2 mg/dL) Urine Leukocyte Esterase Trace (NEG) Urine RBC 0 /HPF (0-2) Urine WBC 1-4 /HPF (0-4) Urine Squamous Epithelial Cells Occ /LPF Urine Bacteria 0 /HPF (0-FEW) Urine Mucus Slight /LPF Triglycerides Level 41 mg/dL (0-150) Cholesterol Level 83 mg/dL (0-200) LDL Cholesterol, Calculated 52 mg/dL (0-100) VLDL Cholesterol, Calculated 8 mg/dL (0-40) Non-HDL Cholesterol Calculated 60 mg/dL (0-129) HDL Cholesterol 23 mg/dL (40-60) Cholesterol/HDL Ratio 3.6 Thyroid Stimulating Hormone (TSH) 2.027 uIU/mL (0.358-3.74) Images Images CTA scan of the Chest with Contrast (Pulmonary Embolism protocol) 10/18/2021: Findings: Comparison is made to a portable chest radiograph performed earlier today. Suboptimal opacification of the pulmonary arteries with contrast is seen significantly limiting the study. No obvious filling defect is seen within the visualized pulmonary arteries. There is mild cardiomegaly. Mild atherosclerotic calcification of the thoracic aorta is seen. The thoracic aorta is mildly tortuous but tapers normally. Enlarged hilar and mediastinal lymph nodes are seen which measure 1 to 2.7 cm in size. Minimal dependent subsegmental atelectasis seen involving both lungs. No area of consolidation is seen. No pneumothorax or pleural effusion is noted. Images through the upper abdomen demonstrate small amount of ascites. Degenerative changes are seen involving the thoracic spine. Impression: The study is limited due to suboptimal opacification of the pulmonary arteries with contrast. There is no definite CT evidence of pulmonary embolism. VTE Prophylaxis Ordered VTE Prophylaxis Devices: No VTE Pharmacological Prophylaxi: Yes Assessment/Plan Assessment/Plan A/P: Acute on chronic systolic CHF - given IV lasix, will continue with cardiology consulted. Daily BMP, mag, daily weights, strict I/O Cardiomyopathy - historically with reduced EF per cardiology review of [facility] records. Elevated troponin - negative [facility] 10/18/2021 AFIB - cont metoprolol, eliquis Hypertension - prn hydralazine, cont BB Hyperlipidemia - statin Schizophrenia, personality disorder, anxiety, depression - will con home meds Polysubstance abuse - f/u UDS. Counseled Anemia - likely of chronic disease, will check iron, b12 Bilateral LE edema - asymmetric with R>L by 1.5", negative for DVT. Will compress, elevated, diurese. BPH - cont flomax FEN - cardiac diet PPX - eliquis FULL CODE Dispo - admit to [facility] Justifications for Admission Other Justification TEJAL DILLARD MD Oct 18, 2021 13:12
--- NOTE | 2021-10-18 13:29 | NUR ---
Pt to CV[facility] post cardiac cath for recovery and to await an inpt bed. TR band air removal procedure completed without difficulty, new armboard in place, no bleeding noted. Dr Gillis here to see pt. Pt is awake and alert, cooperative. Needs to understand what is being done, but has been calm throughout time here. Pt ate lunch, does state he has trouble with swallowing sometime, but did not have difficulty with lunch. Pt states has trouble with insomnia and is currently trying to rest. ANA RN
[2021-10-18] MEDS ORDERED: NICOTINE 21MG PATCH. TD PRN (14:00)
[2021-10-18 14:20] LABS: BARBITURATES NEG (NEG); BENZODIAZEPINES POS (NEG); CANNABINOIDS NEG (NEG); COCAINE NEG (NEG); METHADONE NEG (NEG); OPIATES POS (NEG); PHENCYCLIDINE NEG (NEG)
[2021-10-18 14:21] LABS: AMPHETAMINE/METHAMPHETAMINE NEG (NEG)
--- NOTE | 2021-10-18 15:03 | NUR ---
pt returns from Echo, monitors reattached. Cont to hold for inpt bed. ANA RN
[2021-10-18] MEDS ORDERED: FUROSEMIDE 40 MG/4 ML VIAL. IVP ONE (15:30)
[2021-10-18] MEDS: SPIRONOLACTONE 25 MG TABLET PO SCH (15:40)
[2021-10-18] MEDS: METOPROLOL SUCC 24HR ER 50 MG TAB.ER.24H. PO SCH (15:40)
[2021-10-18] MEDS ORDERED: hydrALAZINE 20 MG/ML VIAL. IVP PRN (16:45)
--- NOTE | 2021-10-18 17:57 | CARD ---
MR#: [id number] Date of Study: 10/18/2021 Ordering Physician: MARGIE PRINCE, Referring Physician: MARGIE PRINCE, Tech: SalomeMira Torres, [facility] APPROVED REPORT EXAM: Two-dimensional and M-mode echocardiogram with Doppler and color Doppler. Other Information Quality : AverageHR: 96bpm INDICATION COPD Dyspnea Atrial Fibrillation Congestive Heart Failure RISK FACTORS Hypertension Smoking 2D DIMENSIONS RVDd4.5 (2.9-3.5cm)Left Atrium(2D)4.1 (1.6-4.0cm) IVSd1.5 (0.7-1.1cm)Aortic Root(2D)4.4 (2.0-3.7cm) LVDd6.2 (3.9-5.9cm)LVOT Diameter2.2 (1.8-2.4cm) PWd1.5 (0.7-1.1cm)LVDs5.4 (2.5-4.0cm) FS (%) 11.9 %SV48.3 ml LVEF(%)25.3 (>50%) Aortic Valve AoV Peak Ant.89.6cm/sAoV VTI15.0cm AO Peak GR.3.2mmHgLVOT Peak Ant.78.2cm/s LVOT VTI 13.68cmAO Mean GR.2mmHg CHARLI (VMAX)2.77uq6YSU (VTI)3.35cm2 Mitral Valve MV E Fizmprcx74.0cm/sMV E Peak Gr.84mmHg MV DECEL [id number] A Imrrfsys16.0cm/s MV TPA23awG/A Ratio1.7 MVA (PHT)5.48cm2 TDI E/Lateral E'7.1E/Medial E'9.1 Pulmonary Valve PV Peak Wmkatyuv12.6cm/sPV Peak Grad.2mmHg Tricuspid Valve TR P. [id number]/sRAP [id number] TR Peak Gr.26egImLYBZ29scLh LEFT VENTRICLE The Left Ventricle is mildly dilated. There is moderate concentric left ventricular hypertrophy. The systolic function is severely impaired. The Ejection Fraction is 20-25%. There is severe global hypok inesis. Septal motion suggestive of RV pressure overload. Tissue Doppler imaging reveals moderate lef t ventricular diastolic dysfunction. RIGHT VENTRICLE The right ventricle is severe dilated. There is normal right ventricular wall thickness. RV Systolic function is severely reduced. ATRIA The left atrium is moderately dilated. The right atrium is moderately dilated. The interatrial septum is intact with no evidence for an atrial septal defect or patent foramen ovale as noted on 2-D or Do ppler imaging. AORTIC VALVE The aortic valve is mildly thickened. Doppler and Color Flow revealed trace to mild aortic regurgitat ion. There is no significant aortic valvular stenosis. Calculated aortic valve area is 2.94 cm2 with maximum pressure gradient of 4 mmHg and mean pressure gradient of 2 mmHg. MITRAL VALVE The mitral valve is normal in structure and function. There is no evidence of mitral valve prolapse. There is no mitral valve stenosis. Doppler and Color-flow revealed trace mitral regurgitation. TRICUSPID VALVE The tricuspid valve is normal in structure and function. Doppler and Color Flow revealed mild tricusp id regurgitation with an estimated PAP of 63 mmHg. There is no tricuspid valve stenosis. PULMONIC VALVE The pulmonic valve is not well visualized. Doppler and Color Flow revealed trace to mild pulmonic belkys vular regurgitation. There is no pulmonic valvular stenosis. GREAT VESSELS The aortic root is mildly to moderately enlarged measuring 4.67 cm. The ascending aorta is normal in size. The IVC is dilated and collapses <50% with inspiration. PERICARDIAL EFFUSION There is no evidence of significant pericardial effusion. Critical Notification Critical Value: No <Conclusion> The systolic function is severely impaired. The Ejection Fraction is 20-25%. There is severe global hypokinesis. Septal motion suggestive of RV pressure overload. The right ventricle is severe dilated. RV Systolic function is severely reduced. Doppler and Color Flow revealed mild tricuspid regurgitation with an estimated PAP of 63 mmHg. Signed by : Gregorio Mclaughlin, Electronically Approved : 10/18/2021 17:57:23
[2021-10-18] MEDS: FERROUS SULFATE 325 MG TABLET. PO SCH (18:03)
[2021-10-18] MEDS: oxyCODONE/APAP 5/325 1 TAB TABLET PO PRN (19:30)
[2021-10-18] MEDS: SENNOSIDES/DOCUSATE 8.6/50MG TABLET. PO SCH (21:17)
[2021-10-18] MEDS: APIXABAN 5 MG TABLET. PO SCH (21:17)
[2021-10-18] MEDS: ONDANSETRON PF 4 MG/2 ML VIAL. IVP PRN (22:05)
[2021-10-18] MEDS: oxyCODONE IR 5 MG TABLET PO PRN (22:16)
[2021-10-18] MEDS ORDERED: LOSA100T2 PO (22:45)
[2021-10-18] MEDS ORDERED: LOSARTAN POTASSIUM 25 MG TABLET. PO SCH (23:00)
[2021-10-19] MEDS: oxyCODONE/APAP 5/325 1 TAB TABLET PO PRN ×3 (02:41→20:26)
[2021-10-19 02:51] VITALS: BP 115/93
[2021-10-19 04:30] LABS: ALBUMIN 3.2 g/dL (3.4-5.0); ALBUMIN/GLOBULIN RATIO 0.9 (1.0-1.7); CALCIUM 8.1 mg/dL (8.5-10.1); CREATININE 1.3 mg/dL (0.7-1.3); GFR 56.1; TOTAL BILIRUBIN 0.5 mg/dL (0.2-1.0); TOTAL PROTEIN 6.7 g/dL (6.4-8.2)
[2021-10-19 06:42] VITALS: BP 144/103
[2021-10-19] MEDS: oxyCODONE IR 5 MG TABLET PO PRN ×3 (07:41→22:17)
[2021-10-19] MEDS ORDERED: FUROSEMIDE 40 MG TABLET. PO SCH (09:00)
[2021-10-19] MEDS: METOPROLOL SUCC 24HR ER 50 MG TAB.ER.24H. PO SCH (09:19)
[2021-10-19] MEDS: FERROUS SULFATE 325 MG TABLET. PO SCH ×2 (09:19→13:33)
[2021-10-19] MEDS: POTASSIUM CHLORIDE 20 MEQ TABLET.ER. PO SCH (09:19)
[2021-10-19] MEDS: APIXABAN 5 MG TABLET. PO SCH ×2 (09:20→20:25)
[2021-10-19] MEDS: SENNOSIDES/DOCUSATE 8.6/50MG TABLET. PO SCH ×2 (09:20→20:25)
[2021-10-19] MEDS: TAMSULOSIN 0.4 MG CAP.ER.24H. PO SCH (09:20)
[2021-10-19] MEDS: SPIRONOLACTONE 25 MG TABLET PO SCH (09:20)
[2021-10-19 11:00] VITALS: BP 152/100
--- NOTE | 2021-10-19 11:30 | NUR ---
SS following for discharge planning. SS reviewed pt chart and discussed with pt RN. Pt is from home and is currently requiring oxygen at two liters nasal canula. No home oxygen. Cardiology following. Pt had heart cath on 10/18/2021. Discharge plan is currently to home when medically ready for discharge. SS will continue to follow for discharge planning.
--- NOTE | 2021-10-19 11:38 | PDOC ---
MARGIE PRINCE BRICK EXTRUDER OPERATOR 10/19/21 1138: CARDIO Progress Notes Date and Time Date of Service 10/19/21 Time of Evaluation 1130 Subjective Subjective: Other (c/o nasal and head congestion) Vitals Vitals Vital Signs Date Time Temp Pulse Resp B/P (MAP) Pulse Ox O2 Delivery O2 Flow Rate FiO2 10/19/21 11:00 64 20 152/100 (117) 93 Nasal Cannula 2.0 10/19/21 06:42 96.4 96.4 Weight Weight [ ] Input and Output Intake and Output Intake and Output 10/19/21 07:00 Intake Total 300 ml Output Total 4075 ml Balance -3775 ml Intake Oral 300 ml Output Urine Total 4075 ml # Voids 2 Laboratory Labs Laboratory Tests Test 10/18/21 13:25 10/19/21 03:00 Urine Opiates Screen Pos (NEG) Urine Methadone Screen Neg (NEG) Urine Barbiturates Neg (NEG) Urine Phencyclidine Screen Neg (NEG) Urine Amphetamine/Methamphetamine Neg (NEG) Urine Benzodiazepines Screen Pos (NEG) Urine Cocaine Screen Neg (NEG) Urine Cannabinoids Screen Neg (NEG) Urine Ethyl Alcohol Neg (NEG) Sodium Level 136 mmol/L (136-145) Potassium Level 4.0 mmol/L (3.5-5.1) Chloride Level 101 mmol/L (98-107) Carbon Dioxide Level 26 mmol/L (21-32) Anion Gap 9 (6-14) Blood Urea Nitrogen 28 mg/dL (8-26) Creatinine 1.3 mg/dL (0.7-1.3) Estimated GFR (Cockcroft-Gault) 56.1 BUN/Creatinine Ratio 22 (6-20) Glucose Level 110 mg/dL (70-99) Calcium Level 8.1 mg/dL (8.5-10.1) Magnesium Level 2.0 mg/dL (1.8-2.4) Total Bilirubin 0.5 mg/dL (0.2-1.0) Aspartate Amino Transf (AST/SGOT) 21 U/L (15-37) Alanine Aminotransferase (ALT/SGPT) 30 U/L (16-63) Alkaline Phosphatase 76 U/L (46-116) Total Protein 6.7 g/dL (6.4-8.2) Albumin 3.2 g/dL (3.4-5.0) Albumin/Globulin Ratio 0.9 (1.0-1.7) Microbiology Micro Microbiology 10/18/21 Urine Culture - Final, Complete 10/18/21 Blood Culture - Preliminary, Resulted NO GROWTH AFTER 1 DAY Physical Exam HEENT: Neck Supple W Full Motion Chest: Symmetric LUNGS: Clear to Auscultation Heart: irregularly irregular (rate controlled ) Abdomen: Soft N/T Extremities: Other (1-2+ bilateral LE edema ) Neurology: alert, oriented, follow commands Assessment Assessment 1. Acute on chronic systolic CHF 2. NICM; Echo with LVEF 20-25%. Cath without significant coronary artery disease 3. Mild troponin elevation; type II, demand ischemia. 4. AFIB; presently AFIB, rate controlled 5. Accelerated hypertension; better controlled, but remains mildly elevated 6. Hyperlipidemia; LDL 52 7. Schizophrenia, personality disorder, anxiety, depression 8. H/o polysubstance abuse 9. H/o noncompliance 10. Iron def anemia Recommendations Diuresis with monitoring of renal function HF optimization therapy. Continue Toprol, spironolactone, Lasix. Increase losartan. Metoprolol for rate control Eliquis for stroke prophylaxis Supportive care Discussed importance of medical compliance Repeat echo in 3 months to assess need for AICD in primary prevention of SCD. Justicifation of Admission Dx: Justifications for Admission: Justification of Admission Dx: Yes Comments: Acute on chronic systolic CHF NICM Accelerated HTN MICHAEL MOSES MD 10/19/212114: CARDIO Progress Notes Assessment Assessment Patient seen and examined. Agree with SALES MARKETING COORDINATOR's assessment and plan. Continue diuresis for acute on chronic systolic heart failure. Cardiac catheterization did not show any significant CAD Atrial fibrillation with rate better controlled Plan repeat echo in 3 months to evaluate need for ICD implantation MARGIE PRINCE APRN Oct 19, 2021 11:38 MICHAEL MOSES MD Oct 19, 2021 21:15
[2021-10-19] MEDS: FUROSEMIDE 40 MG/4 ML VIAL. IVP SCH (13:34)
[2021-10-19] MEDS: LOSARTAN POTASSIUM 50 MG TABLET. PO SCH (13:35)
[2021-10-19 15:00] VITALS: BP 149/99
[2021-10-19 19:16] VITALS: BP 131/91
[2021-10-19 22:45] VITALS: BP 129/92
--- NOTE | 2021-10-19 22:53 | PDOC ---
[employer] PROGRESS NOTE Date of Service DOS: DATE: 10/19/21 TIME: 22:50 Chief Complaint Chief Complaint Assessment/Plan A/P: Acute on chronic systolic CHF - given IV lasix, will continue with cardiology consulted. Daily BMP, mag, daily weights, strict I/O Cardiomyopathy - historically with reduced EF per cardiology review of [facility] records. Elevated troponin - negative [facility] 10/18/2021 AFIB - cont metoprolol, eliquis Hypertension - prn hydralazine, cont BB Hyperlipidemia - statin Schizophrenia, personality disorder, anxiety, depression - will con home meds Polysubstance abuse - f/u UDS. Counseled Anemia - likely of chronic disease, will check iron, b12 Bilateral LE edema - asymmetric with R>L by 1.5", negative for DVT. Will compress, elevated, diurese. BPH - cont flomax FEN - cardiac diet PPX - eliquis FULL CODE Dispo - admit to C History of Present Illness History of Present Illness History of Present Illness Mr Otero is a 61yo male with PMhx Hypertension, HFrEF <30% EF, afib (on eliquis) COPD, and BPH who presents to the ED with complaints of worsening shortness of breath and lower extremity swelling. leg swelling R>L. Reports associated vomiting, loose watery diarrhea. He has noted worsening orthopnea and dyspnea on exertion and notes that normally at his dry weight he weighs 205 pounds and that home he will need 262 pounds. He has not been vaccinated for Covid19. He notes 2 recent hospital stays at [facility] 10 days prior to arrival here and tells me he was escorted out of the hospital by police. He also notes he was hospitalized at [facility] in September for similar symptoms. Labs with WBC 6.4, Hb 9.6, platelets 203, NA 139, K4.2, BUN 28, CR 1.3, calcium 8.2, albumin 3.3, LFTs otherwise within normal laboratory limits, NT proBNP 14,606, high-sensitivity troponin is 134, TSH 2.027, D-dimer 2.94, rapid influenza negative, rapid COVID-19 and COVID-19 PCR both negative. Urinalysis bland. EKG appears A. fib at 96 bpm, left axis deviation, QTC 481, no obvious T wave inversions, ST elevations or ST depressions Bilateral lower extremity venous Doppler negative for DVT, CT pulmonary angiogram undertaking given his symptoms some negative for pulmonary embolism Admitted for further care. Seen immediately after cardiac catheterization where no interventions were performed and EF was noted significantly reduced less than 30%. 10/19 Patiente valuated and examined at bedside. HE was up in his chair reporting ongoing shortness of breath. He was pretty dismissive during entire visit he was filling out voter registration paperwork that seemed to be distracting him Vitals/I&O Vitals/I&O: Vital Signs Date Time Temp Pulse Resp B/P (MAP) Pulse Ox O2 Delivery O2 Flow Rate FiO2 10/19/21 22:17 16 96 Room Air 2.0 10/19/21 19:16 98.3 93 131/91 (104) 98.3 I & O 10/18/21 10/18/21 10/19/21 15:00 23:00 07:00 Intake Total 300 ml 0 ml Output Total 425 ml 2450 ml 1200 ml Balance -425 ml -2150 ml -1200 ml Physical Exam General: Alert, Oriented X3, No acute distress Heart: Regular rate, Normal S1, Normal S2, Other (AFIB, rate controlled ) Lungs: Crackles Abdomen: Soft Extremities: Normal pulses, Other (2+ bilateral LE edema ) Skin: No significant lesion Labs Labs: Laboratory Tests Test 10/19/21 03:00 Sodium Level 136 mmol/L (136-145) Potassium Level 4.0 mmol/L (3.5-5.1) Chloride Level 101 mmol/L (98-107) Carbon Dioxide Level 26 mmol/L (21-32) Anion Gap 9 (6-14) Blood Urea Nitrogen 28 mg/dL (8-26) Creatinine 1.3 mg/dL (0.7-1.3) Estimated GFR (Cockcroft-Gault) 56.1 BUN/Creatinine Ratio 22 (6-20) Glucose Level 110 mg/dL (70-99) Calcium Level 8.1 mg/dL (8.5-10.1) Magnesium Level 2.0 mg/dL (1.8-2.4) Total Bilirubin 0.5 mg/dL (0.2-1.0) Aspartate Amino Transf (AST/SGOT) 21 U/L (15-37) Alanine Aminotransferase (ALT/SGPT) 30 U/L (16-63) Alkaline Phosphatase 76 U/L (46-116) Total Protein 6.7 g/dL (6.4-8.2) Albumin 3.2 g/dL (3.4-5.0) Albumin/Globulin Ratio 0.9 (1.0-1.7) Assessment and Plan Assessmemt and Plan Problems Medical Problems: (1) CHF (congestive heart failure) Status: Acute (2) NSTEMI (non-ST elevated myocardial infarction) Status: Acute Comment Review of Relevant I have reviewed the following items mansi (where applicable) has been applied. Medications: Current Medications Medications (Trade) Dose Ordered Sig/Mari Route PRN Reason Start Time Stop Time Status Last Admin Dose Admin Potassium Chloride (Klor-Con) 20 meq DAILY PO 10/19/21 09:00 10/19/21 09:19 Tamsulosin HCl (Flomax) 0.4 mg DAILY PO 10/19/21 09:00 10/19/21 09:20 Losartan Potassium (Cozaar) 25 mg QHS PO 10/18/21 23:00 10/19/21 13:21 DC 10/18/21 22:47 Losartan Potassium (Cozaar) 50 mg DAILY PO 10/19/21 14:00 10/19/21 13:35 Furosemide (Lasix) 40 mg DAILY IVP 10/19/21 14:00 10/19/21 13:34 Justifications for Admission Other Justification TEJAL PAYNE MD Oct 19, 2021 22:53
[2021-10-20] MEDS: oxyCODONE/APAP 5/325 1 TAB TABLET PO PRN ×2 (02:30→11:16)
[2021-10-20 03:04] VITALS: BP 156/91
[2021-10-20] MEDS: oxyCODONE IR 5 MG TABLET PO PRN ×2 (05:04→09:44)
[2021-10-20] MEDS: ONDANSETRON PF 4 MG/2 ML VIAL. IVP PRN ×2 (05:11→13:30)
[2021-10-20 07:55] VITALS: BP 159/102
[2021-10-20] MEDS: POTASSIUM CHLORIDE 20 MEQ TABLET.ER. PO SCH (09:45)
[2021-10-20] MEDS: TAMSULOSIN 0.4 MG CAP.ER.24H. PO SCH (09:45)
[2021-10-20] MEDS: APIXABAN 5 MG TABLET. PO SCH (09:46)
[2021-10-20] MEDS: LOSARTAN POTASSIUM 50 MG TABLET. PO SCH (09:46)
[2021-10-20] MEDS: METOPROLOL SUCC 24HR ER 50 MG TAB.ER.24H. PO SCH (09:46)
[2021-10-20] MEDS: SENNOSIDES/DOCUSATE 8.6/50MG TABLET. PO SCH (09:47)
[2021-10-20] MEDS: SPIRONOLACTONE 25 MG TABLET PO SCH (09:47)
[2021-10-20] MEDS: FUROSEMIDE 40 MG/4 ML VIAL. IVP SCH (09:47)
[2021-10-20 10:46] VITALS: BP 152/108
[2021-10-20] MEDS: FERROUS SULFATE 325 MG TABLET. PO SCH (11:15)
--- NOTE | 2021-10-20 11:23 | PDOC ---
MARGIE PRINCE FAT PRESSROOM WORKER 10/20/21 1123: CARDIO Progress Notes Date and Time Date of Service 10/20/21 Time of Evaluation 1120 Subjective Subjective: No Chest Pain, No shortness of breath, No Palpitations Vitals Vitals Vital Signs Date Time Temp Pulse Resp B/P (MAP) Pulse Ox O2 Delivery O2 Flow Rate FiO2 10/20/21 11:16 99 Nasal Cannula 2.0 10/20/21 10:46 97.7 76 20 152/108 (123) 97.7 Weight Weight [ ] Input and Output Intake and Output Intake and Output 10/20/21 07:00 Intake Total 1137 ml Output Total 3100 ml Balance -1963 ml Intake Oral 1137 ml Output Urine Total 3100 ml Microbiology Micro Microbiology 10/18/21 Urine Culture - Final, Complete 10/18/21 Blood Culture - Preliminary, Resulted NO GROWTH AFTER 2 DAYS Physical Exam HEENT: Neck Supple W Full Motion Chest: Symmetric LUNGS: Clear to Auscultation Heart: irregularly irregular (rate controlled ) Abdomen: Soft N/T Extremities: Other (1+ bilateral LE edema ) Neurology: alert, oriented, follow commands Assessment Assessment 1. Acute on chronic systolic CHF 2. NICM; Echo with LVEF 20-25%. Cath without significant coronary artery disease 3. Mild troponin elevation; type II, demand ischemia. 4. AFIB; presently AFIB, rate controlled 5. Accelerated hypertension; better controlled, but remains mildly elevated 6. Hyperlipidemia; LDL 52 7. Schizophrenia, personality disorder, anxiety, depression 8. H/o polysubstance abuse 9. H/o noncompliance 10. Iron def anemia Recommendations Lasix therapy, convert to oral HF optimization therapy. Continue Toprol, losartan, spironolactone, Lasix Metoprolol for rate control Eliquis for stroke prophylaxis Supportive care Discussed importance of medical compliance Repeat echo in 3 months to assess need for AICD in primary prevention of SCD. Justicifation of Admission Dx: Justifications for Admission: Justification of Admission Dx: Yes MICHAEL MOSES MD 10/20/21 1001: CARDIO Progress Notes Assessment Assessment Patient seen and examined. Agree with SPINNING DOFFER's assessment and plan. Acute on chronic systolic heart failure better compensated -change Lasix to p.o. Cardiac catheterization did not show any significant CAD Atrial fibrillation with rate better controlled Plan repeat echo in 3 months to evaluate need for ICD implantation MARGIE PRINCE APRN Oct 20, 2021 11:23 MICHAEL MOSES MD Oct 20, 2021 17:45
[2021-10-20] MEDS ORDERED: LOSA-73 PO (11:27)
[2021-10-20] MEDS ORDERED: METO50TA4 PO (11:27)
[2021-10-20] MEDS ORDERED: OXYC5TAB4 PO (11:27)
[2021-10-20] MEDS ORDERED: SPIR25TA PO (11:27)
--- NOTE | 2021-10-20 12:07 | RAD ---
CT HEAD/BRAIN WO Date: 10/20/2021 11:00 AM Clinical Indication: Reason: frequent headache 07/23. Instructions: / History: Comparison: None. Technique: 5 mm axial tomographic images were obtained of the head without contrast. These were view ed on brain and bone windows. One or more of the following dose reduction techniques were utilized: A utomated exposure control (AEC), Adjustment of mA and/or kV according to patient size, Use of iterati ve reconstruction technique such as ASiR, CT scan done according to ALARA and image gently/image givens ly Findings: The brain parenchyma is normal in attenuation. No intra- or extra-axial mass or fluid collection. No acute hemorrhage. The ventricles are normal in size, shape, and morphology. The stevens-white matter alee ction is normal. The subarachnoid cisterns are patent. The visualized paranasal sinuses are normal. The visualized portions of the orbits and globes are no rmal. Postsurgical changes of right mastoidectomy. The greenstone polisher operator topogram shows no lytic lesion or fracture. Impression: No acute intracranial process. Electronically signed by: Alfonzo Mederos MD (10/20/2021 12:04 PM) [id number]
--- NOTE | 2021-10-20 12:48 | NUR ---
SS following up with discharge planning. SS reviewed pt chart and discussed with pt RN. Pt is currently requiring oxygen at two liters nasal canula. Six minute walk ordered. Pt had heart cath on 10/18/2021. COVID19 negative. Discharge order on the chart for home with self care. Addendum: 10/20/21 at 1643 by BOSSMAN LADD Script received for oxygen. Script and clinical phoned and faxed to [phone], ; fax [phone]. Oxygen tank provided to pt for home.
--- NOTE | 2021-10-20 16:56 | NUR ---
Discharge Note: BIB MOSES Discharge instructions and discharge home medications reviewed with Patient and a copy given. All questions have been answered and understanding verbalized. The following instructions and handouts were given: CHF, O2 use at home, chest pain IV discontinued, no complications Patient discharged to home with self care. All belongings taken home with patient. Patient instructed on importance of taking medications as prescribed and to keep all follow up appointments.
--- NOTE | 2021-10-20 20:48 | DS ---
DATE OF DISCHARGE: 10/20/2021 ADMITTING DIAGNOSES: Acute on chronic systolic congestive heart failure, elevated troponin. DISCHARGE DIAGNOSES: Status post cardiac catheterization, which did not show any severe coronary artery disease, but he did have a low ejection fraction of 25%, history of atrial fibrillation, chronic obstructive pulmonary disease, chronic anticoagulation, BPH, history of schizophrenia, history of polysubstance abuse, noncompliance and anemia. CONSULTS: Cardiology. HOSPITAL COURSE: The patient is a pleasant middle-aged male who presented with worsening heart failure and elevated troponin. He was admitted. We have consulted Cardiology, was taken for cardiac catheterization, which did not show any severe coronary artery disease, but he did have a low ejection fraction of 25%. Today, I saw and examined is at his baseline. We discharged to home with close outpatient followup. DISPOSITION: Home. ACTIVITY: As tolerated. DIET: Low sodium. DISCHARGE MEDICATIONS: Please see the MRAD. They are losartan 50 a day, metoprolol 50 a day, p.r.n. oxycodone, Aldactone 25 a day, Eliquis 5 b.i.d., Cardizem CD 240 a day, Lasix 40 a day, potassium 20 a day and Flomax 0.4 a day. TOTAL TIME: [address]: Patricia TID: [id number]
[2021-10-21] MEDS ORDERED: FUROSEMIDE 40 MG TABLET. PO SCH (09:00)
== END 2021-10-20 16:37 | disposition home or self-care (01) | DRG 280 ==
LOC: ER 01:09 → ED HOLD 03:28 → 6 SOUTH 16:15
PROVIDERS: ADMIT Internal Medicine; ATTEND Internal Medicine
PROC: 4A023N7 Measurement of Cardiac Sampling and Pressure, Left Heart, Percutaneous Approach (ICD-10-PCS; principal; 2021-10-18)
PROC: B2151ZZ Fluoroscopy of Left Heart using Low Osmolar Contrast (ICD-10-PCS; 2021-10-18)
PROC: B2111ZZ Fluoroscopy of Multiple Coronary Arteries using Low Osmolar Contrast (ICD-10-PCS; 2021-10-18)
DX: I11.0 Hypertensive heart disease with heart failure (principal); I21.4 Non-ST elevation (NSTEMI) myocardial infarction; I50.23 Acute on chronic systolic (congestive) heart failure; I42.8 Other cardiomyopathies; I48.91 Unspecified atrial fibrillation; D50.9 Iron deficiency anemia, unspecified; D63.8 Anemia in other chronic diseases classified elsewhere; E78.5 Hyperlipidemia, unspecified; F17.210 Nicotine dependence, cigarettes, uncomplicated; F20.9 Schizophrenia, unspecified; F31.9 Bipolar disorder, unspecified; F41.9 Anxiety disorder, unspecified; F60.9 Personality disorder, unspecified; J44.9 Chronic obstructive pulmonary disease, unspecified; N40.0 Benign prostatic hyperplasia without lower urinary tract symptoms; Z53.29 Procedure and treatment not carried out because of patient's decision for other reasons; Z79.01 Long term (current) use of anticoagulants; Z82.49 Family history of ischemic heart disease and other diseases of the circulatory system; Z90.49 Acquired absence of other specified parts of digestive tract; Z91.19 Patient's noncompliance with other medical treatment and regimen; Z20.822 Contact with and (suspected) exposure to COVID-19
CPT/HCPCS: 36415; 70450; 71275; 80053; 80061; 80307; 81001; 82550; 82607; 83540; 83550; 83605; 83735; 83880; 84443; 84484; 85025; 85379; 87040; 87086; 87426; 87804; 93005; 93306; 93458; 93970; 94618; 99152; 99153; C1894; J1644; J1940; J2250; J2270; J2405; J3010; J3490; Q9967; U0003; U0005; 99285-25; G0378; Q0163

== ENCOUNTER 2021-11-08 21:25 | Emergency (ER) | payer OTHER, MEDICAID ==
[~2021-11-08 21:25] MED LIST: APIX5TAB PO; DILT240C33 PO; FURO40TA4 PO; LOSA-73 PO; LOSA100T2 PO; METO50TA4 PO; OXYC5TAB4 PO; POTA20TA4 PO; SPIR25TA PO; TAMS0.4C97 PO
[2021-11-08 22:21] VITALS: BP 113/75
== END 2021-11-09 02:09 | disposition left against medical advice (07) ==
LOC: ER 21:25
DX: R06.02 Shortness of breath (principal); Z53.21 Procedure and treatment not carried out due to patient leaving prior to being seen by health care provider

== ENCOUNTER 2022-02-16 23:25 | Inpatient (IN) | payer OTHER, MEDICAID ==
[~2022-02-16] VITALS: Ht 185.4 cm; Wt 113.5 kg
[2022-02-16] MEDS ORDERED: IPRATRPIUM/ALBUTEROL 0.5/2.5MG 3 ML NEBU. NEB ONE (23:45)
[2022-02-16] MEDS ORDERED: ASPIRIN CHEWABLE 81 MG TABLET. PO ONE (23:45)
[2022-02-16] MEDS ORDERED: methylPREDNISolone SOD SUCC PF 125 MG/2 ML VIAL. IV ONE (23:45)
[2022-02-16] MEDS ORDERED: FUROSEMIDE 40 MG/4 ML VIAL. IVP ONE (23:45)
[2022-02-16 23:57] LABS: BASO % 1 % (0-3); EOS # 0.1 x10^3/uL (0.0-0.7); EOS % 2 % (0-3); HEMATOCRIT 33.5 % (39.0-53.0); HEMOGLOBIN 10.3 g/dL (13.0-17.5); LYMPH # 1.3 x10^3/uL (1.0-4.8); LYMPH % 17 % (24-48); MEAN CORPUSCULAR HEMOGLOBIN 24 pg (25-35); MEAN CORPUSCULAR HGB CONC 31 g/dL (31-37); MEAN CORPUSCULAR VOLUME 79 fL (79-100); MONO % 14 % (0-9); NEUT % 67 % (31-73); PLATELET COUNT 216 x10^3/uL (140-400); RED BLOOD COUNT 4.25 x10^6/uL (4.30-5.70); WHITE BLOOD COUNT 7.5 x10^3/uL (4.0-11.0)
[2022-02-17] VITALS (10 sets, daily range): BP systolic 133–187; BP diastolic 73–107
[2022-02-17 00:04] LABS: CALCIUM 8.5 mg/dL (8.5-10.1); CREATININE 1.6 mg/dL (0.7-1.3)
[2022-02-17 00:07] LABS: PROTHROMBIN TIME PATIENT 19.8 SEC (11.7-14.0)
[2022-02-17 00:11] LABS: ALBUMIN 3.7 g/dL (3.4-5.0); ALBUMIN/GLOBULIN RATIO 1.2 (1.0-1.7); TOTAL BILIRUBIN 1.6 mg/dL (0.2-1.0); TOTAL PROTEIN 6.7 g/dL (6.4-8.2)
[2022-02-17 00:28] LABS: D-DIMER 3.11 ug/mlFEU (0.00-0.50)
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
[2022-02-17] MEDS ORDERED: HALOPERIDOL LACTATE 5 MG/ML VIAL. IVP ONE (01:00)
[2022-02-17] MEDS: dilTIAZem HCL 125 MG in IV DEXTROSE 5% 100ML 100 ML IV ONE ×2 (01:00→10:10)
[2022-02-17] MEDS ORDERED: ACETAMINOPHEN 325 MG TABLET. PO PRN (01:15)
[2022-02-17] MEDS ORDERED: ONDANSETRON PF 4 MG/2 ML VIAL. IVP PRN (01:15)
--- NOTE | 2022-02-17 04:58 | RAD ---
EXAM: XR CHEST 1V 02/16/2022 12:02 AM CLINICAL INDICATION: Severe chest pain COMPARISON: Chest radiograph 10/18/2021 TECHNIQUE: AP upright view of the chest FINDINGS: There is moderate cardiomegaly . Lungs are adequately expanded. No consolidation, pleural effusion, or pneumothorax. IMPRESSION: Cardiomegaly. No new abnormality. Electronically signed by: Zelda Varela MD (02/17/2022 1:07 AM) [facility]
--- NOTE | 2022-02-17 07:01 | RAD ---
EXAMINATION: US BILATERAL LOWEREXTREMITY VENOUS DOPPLER, 02/17/2022 5:35 AM CLINICAL INDICATION: Bilateral lower extremity swelling, shortness of air COMPARISON: None Available. PROCEDURE: Multiple grayscale, color Doppler and spectral Doppler sonographic images of the bilateral lower extremities were obtained. FINDINGS: There is no evidence of deep venous thrombosis in either lower extremity. The bilateral com mon femoral, femoral and popliteal veins are echolucent with normal flow on color Doppler imaging. Th e veins are fully compressible and show normal phasicity and reaction to augmentation. Visualized kane f veins are also normal in appearance. IMPRESSION: No evidence of deep venous thrombosis in either lower extremity. Electronically signed by: Zelda Varela MD (02/17/2022 6:58 AM) [facility]
--- NOTE | 2022-02-17 07:05 | RAD ---
EXAMINATION: US ABDOMEN LIMITED 02/17/2022 5:35 AM INDICATION: Elevated liver enzymes, cholestasis TECHNIQUE: Jack scale and color Doppler ultrasound images of the right upper quadrant were obtained. COMPARISON: None. FINDINGS: Liver: The liver is enlarged measuring 20.3 cm in length. Normal hepatic echogenicity. No focal aron er lesion. Gallbladder: The gallbladder is normal in caliber. No cholelithiasis or sludge. The gallbladder wa ll is thickened measuring 8 mm. Bile ducts: The common bile duct is normal measuring 3 mm. No intrahepatic biliary duct dilatation. Right kidney: The right kidney measures 12.7 x 4.6 x 5.2 cm. Normal cortical thickness and echogenic ity. No hydronephrosis. There is a 1.8 cm simple renal cyst in the inferior right renal pole. Other: IVC is patent at the level of the liver. Pancreas is normal where visualized. IMPRESSION: 1. Hepatomegaly. 2. Moderate gallbladder wall thickening without cholelithiasis or gallbladder distention. This is non specific and can be seen in the setting of acute cholecystitis, heart or renal failure, or liver fail ure. Electronically signed by: Zelda Varela MD (02/17/2022 7:02 AM) [facility]
--- NOTE | 2022-02-17 08:11 | EKG ---
[address] [place] [id number] Test Date: 2022-02-16 Test Time: 23:30:44 Pat Name: BIB MOSES Department: Room: [facility] Gender: M Map Plotter: : 1960 Requested By: KELY THOMPSON Order Number: [id number] Reading MD: Mariano Gandhi Measurements Intervals [place] Rate: 113 P: [place]: QRS: -39 QRSD: 96 T: 134 QT: 356 QTc: 494 Interpretive Statements ATRIAL FIBRILATION T ABNORMALITY IN ANTEROLATERAL LEADS ABNORMAL ECG Electronically Signed On 02-25-2022 14:26:47 CDT by Mariano Gandhi
[2022-02-17 08:31] LABS: ANISOCYTOSIS MOD; HYPOCHROMIA SLIGHT; PLT ESTIMATE ADEQUATE (ADEQUATE)
[2022-02-17 08:32] LABS: POLYCHROMASIA SLIGHT; TEAR DROP CELLS OCC
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
[2022-02-17] MEDS ORDERED: diphenhydrAMINE HCL 25 MG CAPSULE PO PRN (11:00)
[2022-02-17] MEDS ORDERED: diphenhydrAMINE 50 MG/ML VIAL IVP ONE (11:00)
[2022-02-17] MEDS ORDERED: FUROSEMIDE 40 MG/4 ML VIAL. IVP ONE (11:00)
[2022-02-17] MEDS ORDERED: oxyCODONE IR 5 MG TABLET PO PRN (11:00)
[2022-02-17 11:21] LABS: CREATININE 1.5 mg/dL (0.7-1.3); GFR 47.4; POTASSIUM 4.1 mmol/L (3.5-5.1)
[2022-02-17] MEDS ORDERED: ONDANSETRON ODT 4 MG TAB.RAPDIS. PO PRN (11:30)
[2022-02-17] MEDS ORDERED: BUTALB/APAP/CAFEIN 50/325/40MG TABLET. PO PRN (11:30)
[2022-02-17] MEDS ORDERED: ANTI-COAG MONITOR BY PHARMACY. MC PRN (11:30)
[2022-02-17] MEDS: APIXABAN 5 MG TABLET. PO SCH ×2 (11:35→21:53)
[2022-02-17] MEDS: POTASSIUM CHLORIDE 20 MEQ TABLET.ER. PO SCH (11:35)
[2022-02-17] MEDS: SPIRONOLACTONE 25 MG TABLET PO SCH (11:36)
[2022-02-17] MEDS: TAMSULOSIN 0.4 MG CAP.ER.24H. PO SCH (11:36)
[2022-02-17] MEDS: LOSARTAN POTASSIUM 50 MG TABLET. PO SCH (11:36)
[2022-02-17] MEDS ORDERED: METOPROLOL SUCC 24HR ER 50 MG TAB.ER.24H. PO SCH (12:00)
[2022-02-17] MEDS: busPIRone 5 MG TABLET. PO PRN (12:07)
[2022-02-17 12:43] LABS: BARBITURATES NEG (NEG); BENZODIAZEPINES NEG (NEG); CANNABINOIDS NEG (NEG); COCAINE NEG (NEG); METHADONE NEG (NEG); OPIATES NEG (NEG); PHENCYCLIDINE NEG (NEG)
[2022-02-17 12:45] LABS: AMPHETAMINE/METHAMPHETAMINE NEG (NEG)
[2022-02-17] MEDS ORDERED: DIGOXIN IV 500 MCG/2 ML AMPUL. IV ONE (12:45)
--- NOTE | 2022-02-17 12:57 | PDOC2 ---
TYRONE KAY PLANNER INTERN 02/17/22 1257: CARDIAC CONSULT DATE OF CONSULT Date of Consult DATE: 02/17/22 TIME: 12:34 REASON FOR CONSULT Reason for Consult: CHF, AFIB RVR REFERRING PHYSICIAN Referring Physician: Marta SOURCE Source: Chart review, Patient HISTORY OF PRESENT ILLNESS HISTORY OF PRESENT ILLNESS This is a 62 yo male admitted for complains of SOA and chest pain. Chest pain is across his chest and some tightness and with nausea. He ran out completely of his medications about 3 weeks ago. His legs has been getting more swollen. Has been having diarrhea. and also has been having dizzy spells. Denies using meth. Presently still has SOA but no chest pain. PAST MEDICAL HISTORY Past Medical History Cardiovascular: AFIB, CHF, HTN, Hyperlipidemia, Other (Venous insufficiency ), NICM Pulmonary: COPD Psych: Anxiety, Bipolar, Depression, Schizophrenia Renal/: Benign prostatic enlarg. Hernia Repair, Other (lumbar laminectomy) FAMILY HISTORY Family History: Heart Disease SOCIAL HISTORY Smoke: <1 pack per day ALCOHOL: occassional Drugs: Crystal meth (h/o meth use ) Lives: Alone PAST SURGICAL HISTORY Past Surgical History Hernia Repair, Other (lumbar laminectomy), [facility] FAMILY HISTORY Family History: Heart Disease SOCIAL HISTORY Social History Smoke: <1 pack per day ALCOHOL: occassional Drugs: h/o meth use Lives: Alone CURRENT MEDICATIONS CURRENT MEDICATIONS Current Medications Medications (Trade) Dose Ordered Sig/Mari Route PRN Reason Start Time Stop Time Status Last Admin Dose Admin Aspirin (Aspirin Chewable) 324 mg 1X ONCE PO 02/16/22 23:45 02/16/22 23:46 DC 02/17/22 00:19 Albuterol/ Ipratropium (Duoneb) 3 ml 1X ONCE NEB 02/16/22 23:45 02/16/22 23:46 DC 02/17/22 00:58 Methylprednisolone Sodium Succinate (SOLU-Medrol 125MG VIAL) 125 mg 1X ONCE IV 02/16/22 23:45 02/16/22 23:46 DC 02/17/22 00:19 Furosemide (Lasix) 40 mg 1X ONCE IVP 02/16/22 23:45 02/16/22 23:46 DC 02/17/22 00:19 Diltiazem HCl (Cardizem Iv Push) 15 mg 1X ONCE IVP 02/17/22 01:00 02/17/22 01:01 DC 02/17/22 00:41 Haloperidol Lactate (Haldol Inj) 2.5 mg 1X ONCE IVP 02/17/22 01:00 02/17/22 01:01 DC 02/17/22 00:41 Diltiazem HCl 125 mg/Dextrose 125 ml @ 5 mls/hr 1X ONCE IV 02/17/22 01:00 02/18/22 01:59 02/17/22 10:10 Enoxaparin Sodium (Lovenox 120mg Syringe) 110 mg 1X ONCE SQ 02/17/22 01:30 02/17/22 05:31 DC 02/17/22 02:00 Furosemide (Lasix) 40 mg 1X ONCE IVP 02/17/22 11:00 02/17/22 11:10 DC 02/17/22 11:35 Apixaban (Eliquis) 5 mg BID PO 02/17/22 11:00 02/17/22 11:35 Diltiazem HCl (Cardizem 24hr Cd) 240 mg DAILY PO 02/17/22 12:00 02/17/22 12:00 Losartan Potassium (Cozaar) 50 mg DAILY PO 02/17/22 12:00 02/17/22 11:36 Metoprolol Succinate (Toprol Xl) 50 mg DAILY PO 02/17/22 12:00 02/17/22 11:35 Potassium Chloride (Klor-Con) 20 meq DAILY PO 02/17/22 12:00 02/17/22 11:35 Spironolactone (Aldactone) 25 mg DAILY PO 02/17/22 12:00 02/17/22 11:36 Tamsulosin HCl (Flomax) 0.4 mg DAILY PO 02/17/22 12:00 02/17/22 11:36 Buspirone HCl (Buspar) 5 mg PRN Q6HRS PRN PO ANXIETY 02/17/22 11:00 02/17/22 12:07 Diphenhydramine HCl (Benadryl) 25 mg 1X ONCE IVP 02/17/22 11:00 02/17/22 11:35 DC 02/17/22 11:00 ALLERGIES ALLERGIES: Coded Allergies: No Known Drug Allergies (Unverified , 06/28/19) ROS Review of System 14 point ROS evaluated with pertinent positives noted per HPI PHYSICAL EXAM General: Alert, Oriented X3, Cooperative, mild distress HEENT: Atraumatic, Mucous membr. moist/pink Lungs: Other (basilar crackles) Heart: Other (AFIB RVR) Abdomen: Soft, No tenderness, Other (protuberant) Extremities: No cyanosis, Other (3+ bilateral LE pitting edema) Skin: No breakdown Neuro: Normal speech, Sensation intact Psych/Mental Status: Mental status NL, Other (irritable) MUSCULOSKELETAL: Osteoarthritic changes both hands VITALS/I&O VITALS/I&O: Vital Signs Date Time Temp Pulse Resp B/P (MAP) Pulse Ox O2 Delivery O2 Flow Rate FiO2 02/17/22 12:00 117 154/95 02/17/22 11:00 20 98 Nasal Cannula 3.0 02/17/22 02:00 98.6 98.6 I & O 02/16/22 02/16/22 02/17/22 15:00 23:00 07:00 Intake Total 800 ml Output Total 3100 ml Balance -2300 ml LABS Lab: Laboratory Tests Test 02/16/22 23:47 02/17/22 05:50 White Blood Count 7.5 x10^3/uL (4.0-11.0) Red Blood Count 4.25 x10^6/uL (4.30-5.70) L Hemoglobin 10.3 g/dL (13.0-17.5) L Hematocrit 33.5 % (39.0-53.0) L Mean Corpuscular Volume 79 fL (79-100) Mean Corpuscular Hemoglobin 24 pg (25-35) L Mean Corpuscular Hemoglobin Concent 31 g/dL (31-37) Red Cell Distribution Width 21.0 % (11.5-14.5) H Platelet Count 216 x10^3/uL (140-400) Neutrophils (%) (Auto) 67 % (31-73) Lymphocytes (%) (Auto) 17 % (24-48) L Monocytes (%) (Auto) 14 % (0-9) H Eosinophils (%) (Auto) 2 % (0-3) Basophils (%) (Auto) 1 % (0-3) Neutrophils # (Auto) 5.0 x10^3/uL (1.8-7.7) Lymphocytes # (Auto) 1.3 x10^3/uL (1.0-4.8) Monocytes # (Auto) 1.0 x10^3/uL (0.0-1.1) Eosinophils # (Auto) 0.1 x10^3/uL (0.0-0.7) Basophils # (Auto) 0.0 x10^3/uL (0.0-0.2) Platelet Estimate Adequate (ADEQUATE) Polychromasia Slight Hypochromasia Slight Anisocytosis Mod Tear Drop Cells Occ Prothrombin Time 19.8 SEC (11.7-14.0) H Prothrombin Time INR 1.7 (0.8-1.1) H Activated Partial Thromboplast Time 37 SEC (24-38) D-Dimer (Melanie) 3.11 ug/mlFEU (0.00-0.50) H Sodium Level 140 mmol/L (136-145) 141 mmol/L (136-145) Potassium Level 4.0 mmol/L (3.5-5.1) 4.1 mmol/L (3.5-5.1) Chloride Level 106 mmol/L (98-107) 104 mmol/L (98-107) Carbon Dioxide Level 19 mmol/L (21-32) L 20 mmol/L (21-32) L Anion Gap 15 (6-14) H 17 (6-14) H Blood Urea Nitrogen 35 mg/dL (8-26) H 32 mg/dL (8-26) H Creatinine 1.6 mg/dL (0.7-1.3) H 1.5 mg/dL (0.7-1.3) H Estimated GFR (Cockcroft-Gault) 44.0 47.4 BUN/Creatinine Ratio 22 (6-20) H Glucose Level 95 mg/dL (70-99) 169 mg/dL (70-99) H Calcium Level 8.5 mg/dL (8.5-10.1) 9.0 mg/dL (8.5-10.1) Total Bilirubin 1.6 mg/dL (0.2-1.0) H Aspartate Amino Transferase (AST) 237 U/L (15-37) H Alanine Aminotransferase (ALT) 259 U/L (16-63) H Alkaline Phosphatase 83 U/L (46-116) Troponin I High Sensitivity 188 ng/L (4-75) H 179 ng/L (4-75) H XG-Drm-T-Type Natriuretic Peptide 53162 pg/mL (0-124) H Total Protein 6.7 g/dL (6.4-8.2) Albumin 3.7 g/dL (3.4-5.0) Albumin/Globulin Ratio 1.2 (1.0-1.7) Ethyl Alcohol Level < 10 mg/dL (0-10) Laboratory Tests 02/16/22 23:47 Laboratory Tests 02/16/22 23:47 02/17/22 05:50 ECHOCARDIOGRAM ECHOCARDIOGRAM <Conclusion> The systolic function is severely impaired. The Ejection Fraction is 20-25%. There is severe global hypokinesis. Septal motion suggestive of RV pressure overload. The right ventricle is severe dilated. RV Systolic function is severely reduced. Doppler and Color Flow revealed mild tricuspid regurgitation with an estimated PAP of 63 mmHg. DATE: 10/18/21 [id number] HEART CATH HEART CATH Conclusion 1. No significant coronary artery disease 2. Severe left ventricle systolic dysfunction with ejection fraction estimated at 25% 3. Elevated left ventricular end-diastolic pressure consistent with acute on chronic systolic heart failure Recommendations Optimization of medical therapy for severe nonischemic cardiomyopathy and repeat 2D echo in 3 months to evaluate the need for AICD implantation DATE: 10/18/21 [id number] ASSESSMENT/PLAN ASSESSMENT/PLAN 1. AFIB RVR 2. NICM; Echo with LVEF 20-25%. Cath without significant coronary artery disease 3. Mild troponin elevation; type II, demand ischemia. 4. Acute on chronic systolic CHF 5. HTN urgency 6. Hyperlipidemia; LDL 52 7. Schizophrenia, personality disorder, anxiety, depression 8. H/o polysubstance abuse 9. Noncompliance; failed follow up and ran out of med 3 weeks ago 10. Iron def anemia 11. OLGA: likely cardiorenal 12. Mild transaminitis Recommendations 1. Lasix therapy 2. UDS 3. HF optimization, secondary prevention measures 4. Continue lopressor for rate control will increase and eliquis for stroke prevention. Dig IV x1 5. Discussed importance of medical compliance MICHAEL MOSES MD 02/17/22 8171: CARDIAC CONSULT ASSESSMENT/PLAN ASSESSMENT/PLAN Patient seen and examined. Agree with OIL PAINTER's assessment and plan Continue diuresis for acute on chr systolic HF Atrial fib with RVR with HR better controlled after dig IV - continue lopressor Continue eliquis for stroke prophylaxis Thank you for your consultation TYRONE KAY PLANNER INTERN Feb 17, 2022 12:57 MICHAEL MOSES MD Feb 17, 2022 22:15
[2022-02-17] MEDS ORDERED: METOPROLOL SUCC 24HR ER 50 MG TAB.ER.24H. PO ONE (13:00)
--- NOTE | 2022-02-17 15:22 | NUR ---
SS following for discharge planning. SS reviewed pt chart and discussed with pt RN. Pt is from home and is currently requiring oxygen at three liters nasal canula. Cardiology following. Pt on IV Lasix. SS will continue to follow for discharge planning.
[2022-02-18 02:41] VITALS: BP 123/64
[2022-02-18] MEDS ORDERED: HALOPERIDOL LACTATE 5 MG/ML VIAL. IVP ONE (04:45)
--- NOTE | 2022-02-18 04:48 | NUR ---
pt very aggressive ,agitated, uncooperative with cares and staff, pt being verbally abusive, balls fist up and shakes them at staff. Pt stated "I am going to do something" ativan given iv for agitated. Instructed not to get out of bed without assist. Non compliant with instructions. pt refuse to stay in room insisting on ambulating in hallway , olman stevens initiated, dr can notified order for haldol iv given. medication given as per order pt laid down for approx 5min. then up again agitated, olman stevens initiated for 2nd time, will cont to monitor pt safety and status. pmrn
[2022-02-18 07:00] VITALS: BP 132/72
[2022-02-18 09:00] VITALS: BP 132/72
[2022-02-18] MEDS ORDERED: FUROSEMIDE 40 MG/4 ML VIAL. IVP SCH (09:00)
[2022-02-18] MEDS ORDERED: SPIRONOLACTONE 25 MG TABLET PO SCH (09:00)
[2022-02-18] MEDS: TAMSULOSIN 0.4 MG CAP.ER.24H. PO SCH ×2 (09:00→09:15)
[2022-02-18] MEDS: METOPROLOL SUCC 24HR ER 100 MG TAB.ER.24H. PO SCH ×2 (09:00→09:14)
[2022-02-18] MEDS ORDERED: POTASSIUM CHLORIDE 20 MEQ TABLET.ER. PO SCH (09:00)
[2022-02-18] MEDS: LOSARTAN POTASSIUM 50 MG TABLET. PO SCH ×2 (09:00→09:15)
[2022-02-18] MEDS: SPIRONOLACTONE 25 MG TABLET PO SCH ×2 (09:00→09:15)
[2022-02-18] MEDS ORDERED: TAMSULOSIN 0.4 MG CAP.ER.24H. PO SCH (09:00)
[2022-02-18] MEDS: APIXABAN 5 MG TABLET. PO SCH ×2 (09:00→09:15)
[2022-02-18] MEDS ORDERED: METOPROLOL SUCC 24HR ER 50 MG TAB.ER.24H. PO SCH (09:00)
[2022-02-18] MEDS ORDERED: LOSARTAN POTASSIUM 50 MG TABLET. PO SCH (09:00)
[2022-02-18] MEDS: POTASSIUM CHLORIDE 20 MEQ TABLET.ER. PO SCH ×2 (09:00→09:14)
[2022-02-18] MEDS: busPIRone 5 MG TABLET. PO PRN (09:15)
--- NOTE | 2022-02-18 10:11 | SNU/HH DC ---
DISCHARGE WITH HOME HEALTH DISCHARGE INFORMATION: Discharge Date: Feb 18, 2022 Final Diagnosis: AFIB RVR Problems Medical Problems: (1) Acute exacerbation of CHF (congestive heart failure) Status: Acute (2) Acute hypoxemic respiratory failure Status: Acute (3) Atrial fibrillation with RVR Status: Acute Condition on Discharge: Stable CODE STATUS: Code Status: Full HOME HEALTH: Face to Face: I certify this patient is under my care and that I, had a face to face encounter that meets the physician face to face encounter requirements with this patient on 02/18/22 Medical Complications: Other (afib RVR) RN For Eval/Treatment: Yes Physical Therapy For: Evalulation/Treatment Occupational Therapy For: Evaluation/Treatment Pt Meets Homebound Status: Limited distance walking POST DISCHARGE ORDERS: Activity Instructions for Disc: Activity as tolerated Weight Bearing Status after Di: As tolerated DIET AFTER DISCHARGE: Cardiac Wound/Incision Care: No wound care needed CHECKS AFTER DISCHARGE: Checks after discharge: Check blood press - daily, Check blood sugar, ac/hs, Check your Temp as needed, Weigh Yourself Daily TREATMENT/EQUIPMENT ORDERS: Adaptive Equipment Issued: Front wheeled walker CERTIFICATION STATEMENT: Certification Statement: Certification Statement: Based on the above finding, I certify that this patient is confined to the home and needs intermittent correction care, physical therapy and/or speech therapy, or continues to need occupational therapy.~ This patient is under my care, and I have initiated the establishment of the plan of care.~ This patient will be followed by myself or a community physician who will periodically review the plan of care. Home Meds Active Scripts Spironolactone (ALDACTONE) 25 Mg Tablet, 25 MG PO DAILY for . for 30 Days, #30 TAB Prov:CASTLE,NIAL K III DO 10/20/21 Losartan Potassium (COZAAR ) 50 Mg Tablet, 50 MG PO DAILY for . for 30 Days, #30 TAB Prov:CASTLE,NIAL K III DO 10/20/21 Metoprolol Succinate (Toprol XL) 50 Mg Tab.er.24h, 50 MG PO DAILY for . for 30 Days, #30 TAB.SR Prov:CASTLE,NIAL K III DO 10/20/21 Reported Medications Potassium Chloride (POTASSIUM CHLORIDE ) 20 Meq Tablet.er, 20 MEQ PO DAILY for SUPPLEMENT, TAB.SR 10/18/21 Apixaban (ELIQUIS) 5 Mg Tablet, 5 MG PO BID for stroke prevention, TAB 10/18/21 Tamsulosin Hcl (FLOMAX) 0.4 Mg Cap.er.24h, 0.4 MG PO DAILY for , TAB 10/18/21 Diltiazem HCl (Diltiazem 24Hr Cd) 240 Mg Cap.er.24h, 1 CAP PO DAILY for for 30 Days, #30 CAP 0 Refills 10/18/21 Furosemide (FUROSEMIDE) 40 Mg Tablet, 40 MG PO DAILY for , TAB 10/18/21 Discontinued Scripts Oxycodone Hcl (OXYCODONE HCL IMMED.RELEASE ) 5 Mg Tablet, 5 MG PO PRN Q3HRS PRN for BREAKTHROUGH PAIN for 10 Days, #20 TAB Prov:BURKE MA III DO 10/20/21 KRISTY RIVERA MD Feb 18, 2022 10:11
--- NOTE | 2022-02-18 11:43 | PDOC ---
[employer] PROGRESS NOTE Date of Service DOS: DATE: 02/18/22 TIME: 11:41 Chief Complaint Chief Complaint agitated and abrasive to staff overnight, needed sedation and still wanted to fight he explained that was normal for him to me yesterday. angina, hx CAD, he was offered cardiac stents before and refused, he would now like stents placed to "fix my heart" he can barely walk due to chest pain and dyspnea. Acute diastolic CHF, with LE edema, shortness of breath, IV lasix accelerated hypertensio Atrial fibrillation with RVR, cardiazem gtt, start metoprolol and Dig PO and try to wean off the gtt Hx drug abuse and incarceration, still has strong oppositional defiant d isorder, and flor attitude, he just needs some time to get through questions and medical treatments and needs to feel like he is in charge, this took me some time to get him to trust me some. history of drug abuse since age 6, had uncles in the [facility]. prior diagnoses of schizophrenia, mult personality, bipolar, drug abuse, anxiety I was in the room more than 35 minutes Vitals/I&O Vitals/I&O: Vital Signs Date Time Temp Pulse Resp B/P (MAP) Pulse Ox O2 Delivery O2 Flow Rate FiO2 02/18/22 09:00 64 132/72 02/18/22 08:00 Nasal Cannula 3.0 02/18/22 07:00 98.1 20 90 98.1 I & O 02/17/22 02/17/22 02/18/22 15:00 23:00 07:00 Intake Total 300 ml 0 ml Output Total 600 ml 200 ml Balance -600 ml 100 ml 0 ml Physical Exam General: Alert, Oriented X3, Cooperative, mild distress Heart: Other (AFIB RVR) Lungs: Crackles Abdomen: Soft, No tenderness, Other (protuberant) Extremities: No cyanosis, Other (3+ bilateral LE pitting edema) Skin: No breakdown Labs Labs: Laboratory Tests Test 02/17/22 12:00 Urine Opiates Screen Neg (NEG) Urine Methadone Screen Neg (NEG) Urine Barbiturates Neg (NEG) Urine Phencyclidine Screen Neg (NEG) Urine Amphetamine/Methamphetamine Neg (NEG) Urine Benzodiazepines Screen Neg (NEG) Urine Cocaine Screen Neg (NEG) Urine Cannabinoids Screen Neg (NEG) Urine Ethyl Alcohol Neg (NEG) Assessment and Plan Assessmemt and Plan Problems Medical Problems: (1) Acute exacerbation of CHF (congestive heart failure) Status: Acute (2) Acute hypoxemic respiratory failure Status: Acute (3) Atrial fibrillation with RVR Status: Acute Comment Review of Relevant I have reviewed the following items mansi (where applicable) has been applied. Medications: Current Medications Medications (Trade) Dose Ordered Sig/Mari Route PRN Reason Start Time Stop Time Status Last Admin Dose Admin Furosemide (Lasix) 40 mg DAILY IVP 02/18/22 09:00 02/18/22 09:16 Diltiazem HCl (Cardizem 24hr Cd) 240 mg DAILY PO 02/17/22 12:00 02/17/22 12:44 DC 02/17/22 12:00 Losartan Potassium (Cozaar) 50 mg DAILY PO 02/17/22 12:00 02/17/22 11:36 Metoprolol Succinate (Toprol Xl) 50 mg DAILY PO 02/17/22 12:00 02/17/22 12:44 DC 02/17/22 11:35 Potassium Chloride (Klor-Con) 20 meq DAILY PO 02/17/22 12:00 02/17/22 11:35 Spironolactone (Aldactone) 25 mg DAILY PO 02/17/22 12:00 02/17/22 11:36 Tamsulosin HCl (Flomax) 0.4 mg DAILY PO 02/17/22 12:00 02/17/22 11:36 Digoxin (Lanoxin) 500 mcg 1X ONCE IV 02/17/22 12:45 02/17/22 12:56 DC 02/17/22 12:45 Metoprolol Succinate (Toprol Xl) 50 mg 1X ONCE PO 02/17/22 13:00 02/17/22 13:01 DC 02/17/22 13:00 Haloperidol Lactate (Haldol Inj) 5 mg 1X ONCE IVP 02/18/22 04:45 02/18/22 04:46 DC 02/18/22 04:42 Justifications for Admission Other Justification KRISTY RIVERA MD Feb 18, 2022 11:43
--- NOTE | 2022-02-18 12:30 | PDOC ---
Date of Service: DATE: 02/18/22 TIME: 12:29 A/P: D/w nurse - pt left AMA before I saw. Justicifation of Admission Dx: Justifications for Admission: Justification of Admission Dx: Yes TERRELL RUBI Feb 18, 2022 12:29
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
[2022-02-18] MEDS ORDERED: QUEtiapine 100 MG TABLET. PO SCH (21:00)
--- NOTE | 2022-02-18 22:28 | PDOC ---
PROGRESS NOTES Date of Service: DATE: 02/18/22 TIME: 22:27 Subjective Subjective No new complaints Objective Objective Vital Signs Date Time Temp Pulse Resp B/P (MAP) Pulse Ox O2 Delivery O2 Flow Rate FiO2 02/18/22 09:00 64 132/72 02/18/22 08:00 Nasal Cannula 3.0 02/18/22 07:00 98.1 20 90 98.1 Intake and Output 02/18/22 07:00 Intake Total 300 ml Output Total 800 ml Balance -500 ml Intake Oral 300 ml Output Urine Total 800 ml # Voids 1 Physical Exam Abdomen: Soft, No tenderness, Other (protuberant) Heart: Other (AFIB RVR) Extremities: No cyanosis, Other (3+ bilateral LE pitting edema) General: Alert, Oriented X3, Cooperative, mild distress HEENT: Atraumatic, Mucous membr. moist/pink Lungs: Other (basilar crackles) MUSCULOSKELETAL: Osteoarthritic changes both hands Neuro: Normal speech, Sensation intact Psych/Mental Status: Mental status NL, Other (irritable) Skin: No breakdown Assessment Assessment 1. AFIB RVR 2. NICM; Echo with LVEF 20-25%. Cath without significant coronary artery disease 3. Mild troponin elevation; type II, demand ischemia. 4. Acute on chronic systolic CHF 5. HTN urgency 6. Hyperlipidemia; LDL 52 7. Schizophrenia, personality disorder, anxiety, depression 8. H/o polysubstance abuse 9. Noncompliance; failed follow up and ran out of med 3 weeks ago 10. Iron def anemia 11. OLGA: likely cardiorenal 12. Mild transaminitis Recommendations 1. Lasix therapy 2. No CAD on cardiac cath 3. HF optimization, secondary prevention measures 4. Continue lopressor for rate control will increase and eliquis for stroke prevention. Dig IV x1 5. Discussed importance of medical compliance Plan Plan of Care Problems Medical Problems: (1) Acute exacerbation of CHF (congestive heart failure) Status: Acute (2) Acute hypoxemic respiratory failure Status: Acute (3) Atrial fibrillation with RVR Status: Acute Comment Review of Relevant I have reviewed the following items mansi (where applicable) has been applied. Medications Current Medications Diltiazem HCl (Cardizem 24hr Cd) 240 mg DAILY PO ; Start 02/18/22 at 09:00; Status UNV Furosemide (Lasix) 40 mg DAILY IVP Last administered on 02/18/22at 09:16; Start 02/18/22 at 09:00; Stop 02/18/22 at 13:48; Status DC Haloperidol Lactate (Haldol Inj) 5 mg 1X ONCE IVP Last administered on 02/18/22at 04:42; Start 02/18/22 at 04:45; Stop 02/18/22 at 04:46; Status DC Losartan Potassium (Cozaar) 50 mg DAILY PO ; Start 02/18/22 at 09:00; Status UNV Metoprolol Succinate (Toprol Xl) 50 mg DAILY PO ; Start 02/18/22 at 09:00; Status UNV Metoprolol Succinate (Toprol Xl) 100 mg DAILY PO ; Start 02/18/22 at 09:00; Stop 02/18/22 at 13:48; Status DC Potassium Chloride (Klor-Con) 20 meq DAILY PO ; Start 02/18/22 at 09:00; Status UNV Quetiapine Fumarate (SEROquel) 100 mg HS PO ; Start 02/18/22 at 21:00; Stop 02/18/22 at 13:48; Status DC Spironolactone (Aldactone) 25 mg DAILY PO ; Start 02/18/22 at 09:00; Status UNV Tamsulosin HCl (Flomax) 0.4 mg DAILY PO ; Start 02/18/22 at 09:00; Status UNV Vitals/I & O Vital Sign - Last 24 Hours 02/17/22 02/18/22 02/18/22 02/18/22 22:50 02:41 07:00 08:00 Temp 98.0 98.0 98.1 98.0 98.0 98.1 Pulse 73 71 64 Resp 22 20 20 B/P (MAP) 133/73 (93) 123/64 (83) 132/72 (92) Pulse Ox 99 99 90 O2 Delivery Nasal Cannula Nasal Cannula Nasal Cannula Nasal Cannula O2 Flow Rate 3.0 3.0 3.0 3.0 02/18/22 02/18/22 09:00 09:00 Pulse 64 64 B/P (MAP) 132/72 132/72 Intake and Output 02/17/22 02/17/22 02/18/22 15:00 23:00 07:00 Intake Total 300 ml 0 ml Output Total 600 ml 200 ml Balance -600 ml 100 ml 0 ml MICHAEL MOSES MD Feb 18, 2022 22:28
== END 2022-02-18 11:42 | disposition left against medical advice (07) | DRG 291 ==
LOC: ER 23:25 → 6 SOUTH 02-17 00:35
PROVIDERS: ADMIT Internal Medicine; ATTEND Internal Medicine
DX: I11.0 Hypertensive heart disease with heart failure (principal); I50.43 Acute on chronic combined systolic (congestive) and diastolic (congestive) heart failure; J96.01 Acute respiratory failure with hypoxia; I24.8 Other forms of acute ischemic heart disease; N17.9 Acute kidney failure, unspecified; D50.9 Iron deficiency anemia, unspecified; I42.8 Other cardiomyopathies; E78.5 Hyperlipidemia, unspecified; F17.210 Nicotine dependence, cigarettes, uncomplicated; F20.9 Schizophrenia, unspecified; F31.9 Bipolar disorder, unspecified; F41.9 Anxiety disorder, unspecified; F60.9 Personality disorder, unspecified; I16.0 Hypertensive urgency; R74.01 Elevation of levels of liver transaminase levels; I25.119 Atherosclerotic heart disease of native coronary artery with unspecified angina pectoris; I48.91 Unspecified atrial fibrillation; J44.9 Chronic obstructive pulmonary disease, unspecified; Z53.29 Procedure and treatment not carried out because of patient's decision for other reasons; Z79.899 Other long term (current) drug therapy; Z91.19 Patient's noncompliance with other medical treatment and regimen
CPT/HCPCS: 36415; 71045; 76705; 80048; 80053; 80307; 83880; 84484; 85025; 85379; 85610; 85730; 93005; 93970; 94640; 96372; 96374; 96375; G0480; J1160; J1200; J1630; J1650; J1940; J2060; J2930; J3490; J7060; 99285-25; G0378